=== PATIENT | female | born 1975 | race Caucasian/White ===

== ENCOUNTER 2025-07-25 07:34 | Outpatient (CLI) | payer OTHER, SELFPAY ==
--- OUTSIDE RECORDS SUMMARY | 2023-12-04 08:59 | XMS_ITS | Continuity of Care Document ---
Author Organization [facility] Address [address] [place] [address] Phone Care Team Providers Care Therapy Manager Name Role Phone Prosper Dsouza MD Unavailable Unavailable Advance Directives Directive Yes / No Effective Date File Name No Information Encounters Encounter Description Practice Location Reason(s) For Visit Diagnoses Date Provider [facility], [address] [place] [address], [facility], tel:[phone] [facility] Office No Information 2023 Meet Cheng. [address] [facility], [address], [place], [place], [id number], [place]. tel:[phone] Family History Family Member Type Diagnosis Age At Onset No Information Payers Payer name Insurance type Covered constitution party ID Authoriza tion(s) No Information Social History Type Description Quantity Date Captured Comments Sex Female Smoking Status No Information Chief Complaint And Reason For Visit No Information History Of Present Illness Encounter Date Complaint History Of Prese nt Illness No Information Instructions Date Instruction Additional Infor mation No Information Assessments Type Assessment Date No Information
--- OUTSIDE RECORDS SUMMARY | 2025-05-27 22:59 | XMS_ITS | Continuity of Care Document ---
Author Organization [facility] Address [address] [facility] [place] [address] Phone . Care Team Providers Care Assistant Professor Of Anthropology Name Role Phone Azra Du Primary Care Physician [phone] Encounter [place] [phone] Date(s): 05/27/25 - 05/27/[address] [address] [place] [phone] Discharge Disposition: Home Attending Physician: Azra Du Admitting Physician: Azra Du Encounter Type: Outpatient Allergies, Adverse Reactions, Alerts Substance Criticality Severity Reaction Reaction Severity Status penicillin Low criticality Mild Unknown Act anette Ultram Low criticality Mild nausea Acti ve Cymbalta Low criticality Mild nausea Acti ve Treatment Plan Future Appointments Medications cephalexin 500 mg oral capsule 500 mg = 1 cap(s), Oral, q12hr, # 20 cap(s), 0 Refill(s), Pharmacy: [facility], 1 cap(s) Oral q12hr, 162.56, cm, 02/22/25 8:35:00 EDT, Height, 105.6, kg, 02/22/25 8:41:00 EDT, Weight Dosing Start Date: 02/22/25 Status: Ordered Medication Dispense Status: Completed Quantity: 20.0 Unit: cap(s) Total Allowed Fills: 1 Fills Dispensed: 0 Indications: Dysuria; dicyclomine 20 mg oral tablet 20 mg = 1 tab(s), Oral, QID, PRN PRN Dyspepsia, # 40 tab(s), 0 Refill(s), Pharmacy: [facility], 1 tab(s) Oral QID,x14 day(s),PRN:Dyspepsia, 162.56, cm, 09/08/23 10:34:00 EST, Height, 9,680,kg, 09/08/23 10:38:00 EST, Weight Dosing Start Date: 09/16/23 Stop Date: 09/30/23 Status: Ordered Medication Dispense Status: Completed Quantity: 40.0 Unit: tab(s) Total Allowed Fills: 1 Fills Dispensed: 0 fluconazole 150 mg oral tablet 150 mg = 1 tab(s), Oral, Once, # 1 tab(s), 0 Refill(s), Pharmacy: [facility], 1 tab(s) Oral Once, 162.56, cm, 02/22/25 8:35:00 EDT, Height, 105.6, kg, 02/22/25 8:41:00 EDT, Weight Dosing Start Date: 02/22/25 Status: Ordered Medication Dispense Status: Completed Quantity: 1.0 Unit: tab(s) Total Allowed Fills: 1 Fills Dispensed: 0 Indications: Dysuria; hydrOXYzine hydrochloride 25 mg oral tablet 25 mg = 1 tab(s), Oral, BID, PRN PRN Anxiety, # 60 tab(s), 5 Refill(s), Pharmacy: [facility], 1 tab(s) Oral BID,x30 day(s),PRN:Anxiety, 162.56, cm, 05/17/24 10:02:00 EDT, Height, 97.34, kg,05/17/24 10:06:00 EDT, Weight Dosing Start Date: 07/19/24 Stop Date: 01/15/25 Status: Ordered Medication Dispense Status: Completed Quantity: 60.0 Unit: tab(s) Total Allowed Fills: 6 Fills Dispensed: 0 omeprazole 40 mg oral delayed release capsule 40 mg = 1 cap(s), Oral, Daily, # 90 cap(s), 2 Refill(s), Pharmacy: [facility], 1 cap(s) Oral Daily, 162.56, cm, 12/13/24 9:19:00 EDT, Height, 104.96, kg, 12/13/24 9:20:00 EDT, Weight Dosing Start Date: 12/13/24 Status: Ordered Medication Dispense Status: Completed Quantity: 90.0 Unit: cap(s) Total Allowed Fills: 3 Fills Dispensed: 0 Indications: Gastro-esophageal reflux disease without esophagitis; pantoprazole 40 mg oral delayed release tablet TAKE 1 TABLET BY MOUTH ONCE DAILY Start Date: 03/28/25 Status: Ordered Medication Dispense Status: Completed Total Allowed Fills: 1 Fills Dispensed: 0 semaglutide 0.25 mg/0.5 mL (0.25 mg dose) subcutaneous solution See Instructions, 0.25 mg Subcutaneous qWeek X 4 weeks then 0.5 mg weekly X 4 weeks in the abdomen,thigh, or upper arm, # 1 EA, 0 Refill(s), Pharmacy: [facility], please send syringes and bill patient directly, 0.25 mg Subcutaneous qWeek X 4 weeks then 0.5 mg weekly X 4 weeks; in the abdomen, thigh, or upper arm, 162.56, cm, 12/13/24 9:19:00 EDT, Height, 104.96, kg, 12/13/24 9:20:00 EDT, Weight Dosing Start Date: 12/13/24 Status: Ordered Medication Dispense Status: Completed Quantity: 1.0 Unit: EA Total Allowed Fills: 1 Fills Dispensed: 0 Indications: Obesity, unspecified; Problem List Condition Confirmation Course Effective Dates Status Health St [facility] Informant Anxiety Confirmed Active Parekh's esophagus Confirmed Active Degenerative cervical disc Confirmed Active Degenerative lumbar disc Confirmed Active GERD (gastroesophageal reflux disease) Confirmed Active Generalized anxiety disorder Confirmed Active Personal history of other colon polyps Confirmed Active Menopausal symptoms Confirmed Active Neuropathy Confirmed Active Osteoarthritis, multiple sites Confirmed Active Urge incontinence Confirmed Active Procedures Procedure Date Related Diagnosis Body Site Status Colonoscopy 1 07/29/24 Completed Polypectomy 2 07/29/24 Completed Arthroplasty of left knee 11/19/22 Completed History of knee surgery-Left Knee 11/19/22 Completed Date of last mammogram 3 08/30/22 Completed neck surgery 06/2022 Completed Biopsy 4 03/07/22 Completed Esophagogastroduodenoscopy 5 03/07/22 Completed Endoscopy 2017 Completed Hysterectomy-vaginal 2014 Co mpleted Carpal tunnel repair - right hand Completed Cholecystectomy Completed Colonoscopy Completed Epidural steroid injection Completed Knee arthroplasty - right Completed neck fusion C5-6 Complete d Tubal ligation Completed 1auto-populated from documented surgical case 2auto-populated from documented surgical case 3neg 4auto-populated from documented surgical case 5auto-populated from documented surgical case 6Endometriosis Social History Social History Type Response Tobacco Never tobacco user T obacco Use:. Sex Sex Representation Female (finding) Patient Care team information Care Team Personnel Name: Azra Du FAMILY SUPPORT SPECIALIST Position: [employer] Member Role: Primary Care Physician Address: [address] [place] [address] Telecom: Care Team Related Persons Name: ABHISHEK OVALLE Name: MIGUEL ÁNGEL GRIMES Name: SONY GRIMES Insurance Providers Guarantor name: LIZETH ESPINOZA Health Plan Information #: 1 Payer: [facility] Payer Identifier: [id number] Member Number: [id number] Group Number: [id number] Subscriber Identifier: [id number] Relationship to Subscriber: self Coverage Type: PRIVATE [employer] INSURANCE Coverage Verification Date: 25 Telecom: [phone] Address: [address] [place] [address]
--- OUTSIDE RECORDS SUMMARY | 2025-05-30 22:59 | XMS_ITS | Continuity of Care Document ---
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 Name Role Phone Azra Du Primary Care Physician [phone] Encounter 05/30/25 - 05/30/25 [facility] [address] [address]- [phone] - Encounter Diagnosis Personal history of other colon polyps(Discharge Diagnosis) - 05/30/25 Elevated cholesterol(Discharge Diagnosis) - 05/30/25 Annual physical exam(Discharge Diagnosis) - 05/30/25 Obesity (BMI 30-39.9)(Discharge Diagnosis) - 05/30/25 Medication management(Discharge Diagnosis) - 05/30/25 Chronic GERD(Discharge Diagnosis) - 05/30/25 Breast cancer screening(Discharge Diagnosis) - 05/30/25 Discharge Disposition: Home Attending Physician: Azra DuP Encounter Type: Clinic Outpatient Allergies, Adverse Reactions, Alerts Substance Criticality Severity Reaction Reaction Severity Status penicillin Low criticality Mild Unknown Act anette Cymbalta Low criticality Mild nausea Acti ve Ultram Low criticality Mild nausea Acti ve Treatment Plan Extracted from: Title:annual physical exam Author:Donald Du Date:05/30/25 Depression Screen PHQ 2 PHQ 9 MARY-7 Little Interest - Pleasure in Activities: Not at all Trouble Falling or Staying Asleep: Not at all GAD7 Nervousness: Several days Feeling Down, Depressed, Hopeless: Not at all Feeling Tired or Little Energy: Not at all GAD7 Unable to Control Worry: Several days Initial Depression Screen Score: 0 Score Poor Appetite or Overeating: Not at all GAD7 Worrying Too Much: Not at all Feeling Bad About Yourself: Not at all GAD7 Trouble Relaxing: Several days Trouble Concentrating: Not at all GAD7 Restlessness: Not at all Moving or Speaking Slowly: Not at all GAD7 Irritable: Several days Thoughts Better Off or Hurting Self: Not at all GAD7 Fear: Several days Detailed Depression Screen Score: 0 GAD7 Score: 5 Total Depression Screen Score: 0 Adult Depression Screen Interp: Negative Assessment/Plan 1. Annual physical exam Z00.00 normal physical exam today in office. Ordered: Lipid Panel Standard, Blood, Routine collect, 05/30/25, Annual physical exam Elevated cholesterol, Order for future visit, (Future) 2. Personal history of other colon polyps Z86.0109 patient will have repeat colonoscopy 07/2029 3. Elevated cholesterol E78.00 will repeat fasting lipid panel Ordered: Lipid Panel Standard, Blood, Routine collect, 05/30/25, Annual physical exam Elevated cholesterol, Order for future visit, (Future) 4. Obesity (BMI 30-39.9) E66.9 patient to continue trying to improve daily diet and increase with daily exercise/activity 5. Chronic GERD K21.9 stable. patient to continue current medication therapy. 6. Breast cancer screening Z12.39 mammogram ordered patient to schedule and complete. Ordered: [facility] Mammogram Screening Bilat w/ Chai., 05/30/25, Routine, Reason: breast cancer screening, Breast cancer screening, Transport Mode: Ambulatory, Rad Type, (Future) Medication management Z79.899 Future Appointments Future Scheduled Tests Radiology* [facility] Mammogram Screening Bilat w/ Chai. 07/11/25 Medications cephalexin 500 mg oral capsule 500 mg = 1 cap(s), Oral, q12hr, # 20 cap(s), 0 Refill(s), Pharmacy: [facility], 1 cap(s) Oral q12hr, 162.56, cm, 02/22/25 8:35:00 EDT, Height, 105.6, kg, 02/22/25 8:41:00 EDT, Weight Dosing Start Date: 02/22/25 Status: Ordered Medication Dispense Status: Completed Quantity: 20.0 Unit: cap(s) Total Allowed Fills: 1 Fills Dispensed: 0 Indications: Dysuria; dicyclomine 20 mg oral tablet 20 mg = 1 tab(s), Oral, QID, PRN PRN Dyspepsia, # 40 tab(s), 0 Refill(s), Pharmacy: [facility], 1 tab(s) Oral QID,x14 day(s),PRN:Dyspepsia, 162.56, cm, 09/08/23 10:34:00 EST, Height, 9,680,kg, 09/08/23 10:38:00 EST, Weight Dosing Start Date: 09/16/23 Stop Date: 09/30/23 Status: Ordered Medication Dispense Status: Completed Quantity: 40.0 Unit: tab(s) Total Allowed Fills: 1 Fills Dispensed: 0 hydrOXYzine hydrochloride 25 mg oral tablet 25 mg = 1 tab(s), Oral, BID, PRN PRN Anxiety, # 60 tab(s), 5 Refill(s), Pharmacy: [facility], 1 tab(s) Oral BID,x30 day(s),PRN:Anxiety, 162.56, cm, 05/17/24 10:02:00 EDT, Height, 97.34, kg,05/17/24 10:06:00 EDT, Weight Dosing Start Date: 07/19/24 Stop Date: 01/15/25 Status: Ordered Medication Dispense Status: Completed Quantity: 60.0 Unit: tab(s) Total Allowed Fills: 6 Fills Dispensed: 0 omeprazole 40 mg oral delayed release capsule 40 mg = 1 cap(s), Oral, Daily, # 90 cap(s), 2 Refill(s), Pharmacy: [facility], 1 cap(s) Oral Daily, 162.56, cm, 12/13/24 [...] Total Allowed Fills: 1 Fills Dispensed: 0 Problem List Condition Confirmation Course Effective Dates Status Health St atus Informant Parekh's esophagus Confirmed Active Degenerative cervical disc Confirmed Active Degenerative lumbar disc Confirmed Active Personal history of other colon polyps Confirmed Active Neuropathy Confirmed Active Osteoarthritis, multiple [...] case 5auto-populated from documented surgical case 6Endometriosis Vital Signs Most recent to oldest [Reference Range]: 1 Peripheral Pulse Rate [60-100 bpm] 53 bp m *LOW* (05/30/25 9:13 AM) Blood Pressure [90-120/60-80 mmHg] 124/8 2mmHg *HI* (05/30/25 9:13 AM) Mean Arterial Pressure, Cuff [70-110 mmH g] 96 mmHg (05/30/25 9:13 AM) BP Site Right arm (05/30/25 9:13 AM) Pulse Site Pulse Oximetry (05/30/25 9:13 AM) SpO2 [92-100 %] 97 % (05/30/25 9:13 AM) Height 162.56 cm (05/30/25 9:13 AM) Height/Length Measured (inches) 64 in (05/30/25 9:13 AM) Weight 105.69 kg (05/30/25 9:13 AM) Weight Measured (lbs) 233.006 lb (05/30/25 9:13 AM) Weight Dosing 105.690 kg (05/30/25 9:13 AM) BSA Measured 2.18 m2 (05/30/25 9:13 AM) Body Mass Index 40 kg/m2 (05/30/25 9:13 AM) Social History Social History Type Response Tobacco Never tobacco user T obacco Use:. Sex Sex Representation Female (finding) Hospital Discharge Instructions Patient Education 05/30/2025 09:52:29 Preventing Consequences of Unhealthy Eating Behaviors, Adult Preventing Consequences of Unhealthy Eating Behaviors, Adult Eating behaviors are influenced by your thoughts, feelings, and relationships with other people. Everyone has some unhealthy eating behaviors. These could be eating too much or too little, eating unhealthy foods, or eating at the wrong times or for the wrong reasons. If these behaviors are not managed, they can lead to health problems. If you also struggle with weight management, it may be even harder to change patterns of irregular and unhealthy eating (disordered eating). Being underweight or overweight and having unhealthy eating behaviors may lead to dangerous health problems. Unhealthy eating behaviors may also be signs thatyou have an eating disorder. This is a type of mental health issue that causes problems with healthy eating or with weight regulation. How can unhealthy eating behaviors affect me? Eating in unhealthy ways to try to lose weight can cause: ??? Tiredness (fatigue), low heart rate, and low blood pressure. ??? Imbalances in your body. These may be imbalances in: ??? Electrolytes. These are salts and minerals in your blood. ??? Chemicals. These are needed so your body can work properly. ??? Body fluids. Loss of fluids may lead to dehydration. ??? Organ damage or organ failure, especially affecting the kidneys. ??? Thin bones that break easily. ??? Loneliness or relationship problems with your friends and family. ??? Emotional problems, including depression and anxiety. Changing unhealthy eating behaviors through lifestyle changes will improve your overall health. If you maintain a healthy weight, you can also lower your risk of certain conditions, including: ??? Obesity. ??? Heart disease, high cholesterol, or high blood pressure. ??? Type 2 diabetes. ??? Breathing and sleeping disorders. ??? Stroke. ??? Osteoarthritis. This affects your joints. ??? Osteoporosis. This affects your bones. ??? Some cancers. What can increase my risk? Certain physical and mental conditions can increase your risk for unhealthy eating behaviors, such as: ??? Depression. ??? Being dissatisfied with your body. ??? Painful events (trauma) in childhood. ??? Being overweight or obese. What actions can I take to prevent unhealthy eating behaviors? You can start changing unhealthy eating behaviors by making different food choices. Choices that you make about what to eat and drink are very important, especially if you want to lose weight. Makingcertain lifestyle changes can also help you change unhealthy eating behaviors. Nutrition ??? Eat a variety of healthy foods, including fruits and vegetables, whole grains, lean proteins, and low-fat dairy products. ??? Drink water instead of sugary drinks such as juice, soda, or sports drinks. ??? Drink enough fluid to keep your urine pale yellow. ??? Plan healthy, balanced meals. Work with a dietitian to make a healthy meal plan that works for you. ??? Avoid the following: ??? Foods that are high in fat, salt (sodium), or sugar. These include candy, donuts, pizza, and fast foods. ??? Fried or heavily processed foods. Lifestyle ??? Avoid these unhealthy eating habits: ??? Eating when you are not hungry, or when you are bored, stressed, or doing another activity, such as watching TV. ??? Eating late at night. ??? Following a diet that restricts entire types of food. This may be a popular diet that promises extreme results in a short time. ??? Skipping meals to save calories or restricting your calories to far fewer than the number that you need to lose or maintain a healthy weight. ??? Not eating anything for long periods of time (fasting). ??? Eating an excessive amount of food and then making yourself vomit. This is known as bingeing and purging. ??? Keep a food diary to help you see patterns of unhealthy eating behaviors and what triggers them. ??? Plan your meals ahead of time and prepare them at home. ??? Eat your food slowly, and avoid distractions such as watching TV while you eat. ??? Get enough sleep each night. ??? Give yourself time to replace unhealthy eating behaviors with healthy ones. ??? Do not use any products that contain nicotine or tobacco. These products include cigarettes, chewing tobacco, and vaping devices, such as e-cigarettes. If you need help quitting, ask your health care provider. Alcohol use ??? Do not drink alcohol if: ??? Your health care provider tells you not to drink. ??? You are , may be , or are planning to become . ??? If you drink alcohol: ??? Limit how much you have to: ??? 0???1 drink a day for women. ??? 0???2 drinks a day for men. ??? Know how much alcohol is in your drink. In the [place] one drink equals one 12 oz bottle of beer (355 mL), one 5 oz glass of wine (148 mL), or one 1?? oz glass of hard liquor (44 mL). Activity ??? Avoid extreme amounts of exercise. ??? Work with your health care provider or a dietitian to design an exercise program that works foryou. ??? To maintain your weight, get at least 150 minutes of moderate-intensity exercise each week. Moderate-intensity exercise could be brisk walking or biking. ??? To lose a healthy amount of weight, get 60 minutes of moderate-intensity exercise each day. ??? Find ways to reduce stress, such as regular exercise or meditation. ??? Find a hobby or other activity that you enjoy. This helps to distract you from eating when you feel stressed or bored. Where to find support For more support, talk with: ??? Your health care provider or dietitian. Ask about support groups. ??? A mental health care provider. ??? Family and friends. Where to find more information Learn more about how to prevent complications from unhealthy eating behaviors from: ??? ChooseMyPlate.gov: www.choosemyplate.gov ??? Centers for Disease Control and Prevention: www.cdc.gov ??? National [place] of Mental Health: www.nimh.nih.gov ??? National Eating Disorders Association: www.nationaleatingdisorders.org Contact a health care provider if: ??? You often feel very tired. ??? You notice changes in your skin or your hair. ??? You faint because you have not eaten enough. ??? You struggle to change your unhealthy eating behaviors on your own. ??? Unhealthy eating behaviors are affecting your daily life or your relationships. ??? You have signs or symptoms of an eating disorder. ??? You have major weight changes in a short period of time. ??? You feel guilty or ashamed about eating. Summary ??? Unhealthy eating behaviors include eating too much or too little, eating unhealthy foods, and eating at the wrong times or for the wrong reasons. ??? You can improve your eating habits and help prevent health problems by choosing healthy foods, getting enough calories every day, and exercising regularly. ??? Contact your health care provider if you cannot make these changes by yourself or if you think that you may have an eating disorder. This information is not intended to replace advice given to you by your health care provider. Make sure you discuss any questions you have with your health care provider. Document Revised: 04/23/2022 Document Reviewed: 04/23/2022 [employer] Patient Education ?? 2024 [employer]. 05/30/2025 09:52:27 Healthy Eating, Adult Healthy Eating, Adult Healthy eating may help you get and keep a healthy body weight, reduce the risk of chronic disease,and live a long and productive life. It is important to follow a healthy eating pattern. Your nutritional and calorie needs should be met mainly by different nutrient-rich foods. What are tips for following this plan? Reading food labels ??? Read labels and choose the following: ??? Reduced or low sodium products. ??? Juices with 100% fruit juice. Foods with low saturated fats (<3 g per serving) and high polyunsaturated and monounsaturated fats. ??? Foods with whole grains, such as whole wheat, cracked wheat, brown rice, and wild rice. ??? Whole grains that are fortified with folic acid. This is recommended for females who are or who want to become . ??? Read labels and do not eat or drink the following: ??? Foods or drinks with added sugars. These include foods that contain brown sugar, corn sweetener, corn syrup, dextrose, fructose, glucose, high-fructose corn syrup, honey, invert sugar, lactose, malt syrup, maltose, molasses, raw sugar, sucrose, trehalose, or turbinado sugar. ??? Limit your intake of added sugars to less than 10% of your total daily calories. Do not eat more than the following amounts of added sugar per day: ??? 6 teaspoons (25 g) for females. ??? 9 teaspoons (38 g) for males. ??? Foods that contain processed or refined starches and grains. ??? Refined grain products, such as white flour, degermed cornmeal, white bread, and white rice. Shopping ??? Choose nutrient-rich snacks, such as vegetables, whole fruits, and nuts. Avoid high-calorie andhigh-sugar snacks, such as potato chips, fruit snacks, and candy. ??? Use oil-based dressings and spreads on foods instead of solid fats such as butter, margarine, sour cream, or cream cheese. ??? Limit pre-made sauces, mixes, and instant products such as flavored rice, instant noodles, and ready-made pasta. ??? Try more plant-protein sources, such as tofu, tempeh, black beans, edamame, lentils, nuts, and seeds. ??? Explore eating plans such as the Mediterranean diet or vegetarian diet. ??? Try heart-healthy dips made with beans and healthy fats like hummus and guacamole. Vegetables go great with these. Cooking ??? Use oil to saut?? or stir-nuñez foods instead of solid fats such as butter, margarine, or lard. ??? Try baking, boiling, grilling, or broiling instead of frying. ??? Remove the fatty part of meats before cooking. ??? Steam vegetables in water or broth. Meal planning ??? At meals, imagine dividing your plate into fourths: ??? One-half of your plate is fruits and vegetables. ??? One-fourth of your plate is whole grains. ??? One-fourth of your plate is protein, especially lean meats, poultry, eggs, tofu, beans, or nuts. ??? Include low-fat dairy as part of your daily diet. Lifestyle ??? Choose healthy options in all settings, including home, work, school, restaurants, or stores. ??? Prepare your food safely: ??? Wash your hands after handling raw meats. ??? Where you prepare food, keep surfaces clean by regularly washing with hot, soapy water. ??? Keep raw meats separate from ilkhx-vx-mpb foods, such as fruits and vegetables. ??? grain inspector, meat, poultry, and eggs to the recommended temperature. Get a food thermometer. ??? Store foods at safe temperatures. In general: ??? Keep cold foods at 40??F (4.4??C) or below. ??? Keep hot foods at 140??F (60??C) or above. ??? Keep your freezer at 0??F (-17.8??C) or below. ??? Foods are not safe to eat if they have been between the temperatures of 40???140??F (4.4???60??C) for more than 2 hours. What foods should I eat? Fruits Aim to eat 1?2?? cups of fresh, canned (in natural juice), or frozen fruits each day. One cup of fruit equals 1 small apple, 1 large banana, 8 large strawberries, 1 cup (237 g) canned fruit, ?? cup (82 g) dried fruit, or 1 cup (240 mL) 100% juice. Vegetables Aim to eat 2???4 cups of fresh and frozen vegetables each day, including different varieties and colors. One cup of vegetables equals 1 cup (91 g) broccoli or cauliflower florets, 2 medium carrots, 2cups (150 g) raw, leafy greens, 1 large tomato, 1 large mcleod pepper, 1 large sweet potato, or 1 medium white potato. Grains Aim to eat 5???10 ounce-equivalents of whole grains each day. Examples of 1 ounce-equivalent of grains include 1 slice of bread, 1 cup (40 g) igimm-xw-aoc cereal, 3 cups (24 g) popcorn, or ?? cup (93g) cooked rice. Meats and other proteins Try to eat 5???7 ounce-equivalents of protein each day. Examples of 1 ounce- equivalent of protein include 1 egg, ?? oz nuts (12 almonds, 24 pistachios, or 7 walnut halves), 1/4 cup (90 g) cooked beans, 6 tablespoons (90 g) hummus or 1 tablespoon (16 g) peanut butter. A cut of meat or fish that is the size of a deck of cards is about 3???4 ounce-equivalents (85 g). ??? Of the protein you eat each week, try to have at least 8 sounce (227 g) of seafood. This is about 2 servings per week. This includes salmon, trout, romero, sardines, and anchovies. Dairy Aim to eat 3 cup-equivalents of fat-free or low-fat dairy each day. Examples of 1 cup-equivalent ofdairy include 1 cup (240 mL) milk, 8 ounces (250 g) yogurt, 1?? ounces (44 g) natural cheese, or 1 cup (240 mL) fortified soy milk. Fats and oils ??? Aim for about 5 teaspoons (21 g) of fats and oils per day. Choose monounsaturated fats, such ascanola and olive oils, mayonnaise made with olive oil or avocado oil, avocados, peanut butter, and most nuts, or polyunsaturated fats, such as sunflower, corn, and soybean oils, walnuts, pine nuts, sesame seeds, sunflower seeds, and flaxseed. Beverages ??? Aim for 6 eight-ounce glasses of water per day. Limit coffee to 3???5 eight- ounce cups per day. ??? Limit caffeinated beverages that have added calories, such as soda and energy drinks. ??? If you drink alcohol: ??? Limit how much you have to: ??? 0???1 drink a day if you are female. ??? 0???2 drinks a day if you are male. ??? Know how much alcohol is in your drink. In the [place] one drink is one 12 oz bottle of beer (355mL), one 5 oz glass of wine (148 mL), or one 1?? oz glass of hard liquor (44 mL). Seasoning and other foods ??? Try not to add too much salt to your food. Try using herbs and spices instead of salt. ??? Try not to add sugar to food. This information is based on [place] nutrition guidelines. To learn more, visit chooseSonex[employer] Technologyplate.gov. Exact amounts may vary. You may need different amounts. This information is not intended to replace advice given to you by your health care provider. Make sure you discuss any questions you have with your health care provider. Document Revised: 06/09/2023 Document Reviewed: 06/09/2023 [employer] Patient Education ?? 2024 [employer] 05/30/2025 09:52:18 Health Maintenance, Female Health Maintenance, Female Adopting a healthy lifestyle and getting preventive care are important in promoting health and wellness. Ask your health care provider about: ??? The right schedule for you to have regular tests and exams. ??? Things you can do on your own to prevent diseases and keep yourself healthy. What should I know about diet, weight, and exercise? Eat a healthy diet ??? Eat a diet that includes plenty of vegetables, fruits, low-fat dairy products, and lean protein. ??? Do not eat a lot of foods that are high in solid fats, added sugars, or sodium. Maintain a healthy weight Body mass index (BMI) is used to identify weight problems. It estimates body fat based on height and weight. Your health care provider can help determine your BMI and help you achieve or maintain a healthy weight. Get regular exercise Get regular exercise. This is one of the most important things you can do for your health. Most adults should: ??? Exercise for at least 150 minutes each week. The exercise should increase your heart rate and make you sweat (moderate-intensity exercise). ??? Do strengthening exercises at least twice a week. This is in addition to the moderate-intensityexercise. ??? Spend less time sitting. Even light physical activity can be beneficial. Watch cholesterol and blood lipids Have your blood tested for lipids and cholesterol at 20 years of age, then have this test every 5 years. Have your cholesterol levels checked more often if: ??? Your lipid or cholesterol levels are high. ??? You are older than 40 years of age. ??? You are at high risk for heart disease. What should I know about cancer screening? Depending on your health history and family history, you may need to have cancer screening at various ages. This may include screening for: ??? Breast cancer. ??? Cervical cancer. ??? Colorectal cancer. ??? Skin cancer. ??? Lung cancer. What should I know about heart disease, diabetes, and high blood pressure? Blood pressure and heart disease ??? High blood pressure causes heart disease and increases the risk of stroke. This is more likely to develop in people who have high blood pressure readings or are overweight. ??? Have your blood pressure checked: ??? Every 3???5 years if you are 18???39 years of age. ??? Every year if you are 40 years old or older. Diabetes Have regular diabetes screenings. This checks your fasting blood sugar level. Have the screening done: ??? Once every three years after age 40 if you are at a normal weight and have a low risk for diabetes. ??? More often and at a younger age if you are overweight or have a high risk for diabetes. What should I know about preventing infection? Hepatitis B If you have a higher risk for hepatitis B, you should be screened for this virus. Talk with your health care provider to find out if you are at risk for hepatitis B infection. Hepatitis C Testing is recommended for: ??? Everyone born from 1945 through 1965. ??? Anyone with known risk factors for hepatitis C. Sexually transmitted infections (STIs) ??? Get screened for STIs, including gonorrhea and chlamydia, if: ??? You are sexually active and are younger than 24 years of age. ??? You are older than 24 years of age and your health care provider tells you that you are at riskfor this type of infection. ??? Your sexual activity has changed since you were last screened, and you are at increased risk for chlamydia or gonorrhea. Ask your health care provider if you are at risk. ??? Ask your health care provider about whether you are at high risk for HIV. Your health care provider may recommend a prescription medicine to help prevent HIV infection. If you choose to take medicine to prevent HIV, you should first get tested for HIV. You should then be tested every 3 months for as long as you are taking the medicine. ??? If you are about to stop having your period (premenopausal) and you may become , seek counseling before you get . ??? Take 400 to 800 micrograms (mcg) of folic acid every day if you become . ??? Ask for control (contraception) if you want to prevent . Osteoporosis and menopause Osteoporosis is a disease in which the bones lose minerals and strength with aging. This can resultin bone fractures. If you are 65 years old or older, or if you are at risk for osteoporosis and fractures, ask your health care provider if you should: ??? Be screened for bone loss. ??? Take a calcium or vitamin D supplement to lower your risk of fractures. ??? Be given hormone replacement therapy (HRT) to treat symptoms of menopause. Follow these instructions at home: Alcohol use ??? Do not drink alcohol if: ??? Your health care provider tells you not to drink. ??? You are , may be , or are planning to become . ??? If you drink alcohol: ??? Limit how much you have to: ??? 0???1 drink a day. ??? Know how much alcohol is in your drink. In the [place] one drink equals one 12 oz bottle of beer (355 mL), one 5 oz glass of wine (148 mL), or one 1?? oz glass of hard liquor (44 mL). Lifestyle ??? Do not use any products that contain nicotine or tobacco. These products include cigarettes, chewing tobacco, and vaping devices, such as e-cigarettes. If you need help quitting, ask your health care provider. ??? Do not use street drugs. ??? Do not share needles. ??? Ask your health care provider for help if you need support or information about quitting drugs. General instructions ??? Schedule regular health, dental, and eye exams. ??? Stay current with your vaccines. ??? Tell your health care provider if: ??? You often feel depressed. ??? You have ever been abused or do not feel safe at home. Summary ??? Adopting a healthy lifestyle and getting preventive care are important in promoting health and wellness. ??? Follow your health care provider's instructions about healthy diet, exercising, and getting tested or screened for diseases. ??? Follow your health care provider's instructions on monitoring your cholesterol and blood pressure. This information is not intended to replace advice given to you by your health care provider. Make sure you discuss any questions you have with your health care provider. Document Revised: 01/28/2022 Document Reviewed: 01/28/2022 [employer] Patient Education ?? 2024 [employer]. Follow Up Care 03/28/2025 09:30:38 With:Joe Castellon MD Address: When:6 Months Primary care Note * Azra Du: MODIFY, PERFORM Event Display: Office/Clinic Note Authored Date: [id number] LIZETH ESPINOZA :1975 Age:50 years Sex:Female Registration Date:05/30/2025 Primary Care Physician: Azra Du Chief Complaint Physical History of Present Illness patient in office for annual physical exam: ?? GERD: taking omeprazole 40 mg daily with well controlled reflux symptoms. denies adverse effects with medication. ?? screening: breast - mammogram ordered cervical - complete hysterectomy 2014 colon - 07/2024 colonoscopy with polyps removed. recommended f/u 5 years Review of Systems Constitutional:?No??fevers,??No??chills,??No??sweats?? Eye:?No??recent visual problems?? ENT:?No??ear pain,??No??nasal congestion,??No??sore throat?? Respiratory:?No??shortness of breath,??No?cough?? Cardiovascular:??No?Chest??pain?No??palpitations?No??syncope?? Gastrointestinal:?No??nausea,??No??vomiting,??No??diarrhea?? Genitourinary:?No??hematuria Andres/Lymph:??No??bruising tendency,??No??swollen lymph glands?? Endocrine:?No??excessive thirst,??No??excessive hunger?? Musculoskeletal:No??back pain,??No??neck pain,??No??joint pain,??No??muscle pain,??No??decreased range of motion?? Integumentary:?No??rash,??No??pruritus,??No??abrasions?? Neurologic: Alert & oriented X 4 Psychiatric:?No??anxiety,??No??depression ?? Physical Exam Vitals & Measurements HR:??53??(Peripheral)?? BP:??124/82?? SpO2:??97%?? HT:??162.56??cm?? WT:??105.69??kg?? BMI:??40?? BSA:??2.18?? General: Alert and oriented, well nourished,??No??acute distress?? Eye:??PERRL, EOMI,?Normal?? conjunctiva?? HENT: Normocephalic, clear tympanic membranes,??Normal??hearing, moist oral mucosa,?No??scleral icterus,?No?? sinus tenderness?? Neck: Supple, non-tender,??Nocarotid bruits,?NoJVD, ??No??lymphadenopathy?? Lungs:??Clear to auscultation?? Respiration:??Non-Labored Heart: ??Normal?? rate, ??Regular?? rhythm,?No?? murmur,??No?? gallop,??No??edema?? Abdomen: Soft, non-tender, non-distended, ??Normal?? bowel sounds??No?? masses Musculoskeletal: ??Normal??range of motion and strength, ??No??tenderness, ??No?? swelling?? Skin: Skin is warm, dry and pink, ??No?? rashes, ??No?? lesions?? Neurologic: Awake, alert and oriented X4, CN I-XII intact?? Psychiatric: Cooperative, appropriate mood and affect Depression Screen?? PHQ 2?? PHQ 9?? MARY-7?? Little Interest - Pleasure in Activities: Not at all Trouble Falling or Staying Asleep: Not at all GAD7 Nervousness: Several days Feeling Down, Depressed, Hopeless: Not at all Feeling Tired or Little Energy: Not at all GAD7 Unable to Control Worry: Several days Initial Depression Screen Score: 0 Score Poor Appetite or Overeating: Not at all GAD7 Worrying Too Much: Not at all ?? Feeling Bad About Yourself: Not at all GAD7 Trouble Relaxing: Several days ?? Trouble Concentrating: Not at all GAD7 Restlessness: Not at all ?? Moving or Speaking Slowly: Not at all GAD7 Irritable: Several days ?? Thoughts Better Off or Hurting Self: Not at all GAD7 Fear: Several days ?? Detailed Depression Screen Score: 0 GAD7 Score: 5 ?? Total Depression Screen Score: 0 ? Adult Depression Screen Interp: Negative ?? Assessment/Plan 1.??Annual physical exam??Z00.00 normal physical exam today in office. Ordered: Lipid Panel Standard, Blood, Routine collect, 05/30/25, Annual physical exam Elevated cholesterol, Order for future visit, (Future) ?? 2.??Personal history of other colon polyps??Z86.0109 patient will have repeat colonoscopy 07/2029 ?? 3.??Elevated cholesterol??E78.00 will repeat fasting lipid panel Ordered: Lipid Panel Standard, Blood, Routine collect, 05/30/25, Annual physical exam Elevated cholesterol, Order for future visit, (Future) ?? 4.??Obesity (BMI 30-39.9)??E66.9 patient to continue trying to improve daily diet and increase with daily exercise/activity ?? 5.??Chronic GERD??K21.9 stable.?? patient to continue current medication therapy. ?? 6.??Breast cancer screening??Z12.39 mammogram ordered patient to schedule and complete. Ordered: MA Mammogram Screening Bilat w/ Chai., 05/30/25, Routine, Reason: breast cancer screening, Breast cancer screening, Transport Mode: Ambulatory, Rad Type, (Future) ?? Medication management??Z79.899 ?? Future Orders Lipid Panel Standard, Blood, Routine collect, 05/30/25, Annual physical exam Elevated cholesterol, Order for future visit MA Mammogram Screening Bilat w/ Chai., 05/30/25, Routine, Reason: breast cancer screening, Breast cancer screening, Transport Mode: Ambulatory, Rad Type Follow Up Instructions With When Contact Information Joe Castellon MD Within 6 Months Additional Instructions: Reviewed most recent and past labs and CHRIS. Counseled and educated the patient on: above Discussed expectations, prognosis, and treatment plan. Social and medical histories reviewed with patient. Medications reconciled. Educational material to be provided with depart paperwork upon checkout at front desk admin. Patient to check the portal to review today's note and recommendations. ?? Patient verbalized agreement and understanding of plan. ?? All questions reviewed and addressed to the patient's satisfaction.?? Will call if any other concerns. Patient Education Preventing Consequences of Unhealthy Eating Behaviors, Adult Healthy Eating, Adult Health Maintenance, Female Problem List/Past Medical History Ongoing Parekh's esophagus Degenerative cervical disc Degenerative lumbar disc Neuropathy Osteoarthritis, multiple sites Personal history of other colon polyps Urge incontinence Historical Anxiety Elevated blood pressure reading Generalized anxiety disorder GERD (gastroesophageal reflux disease) Hypercholesterolemia Hypertension Menopausal symptoms Pelvic pain Procedure/Surgical History ???Colonoscopy (07/29/2024)???Polypectomy (07/29/2024)???Arthroplasty of left knee (11/19/2022)???History of knee surgery-Left Knee (11/19/2022)???Date of last mammogram (08/30/2022)???neck surgery (06/2022)???Biopsy (03/07/2022)???Esophagogastroduodenoscopy (03/07/2022)???Endoscopy (2018)???Hysterectomy-vaginal (2014)???Carpal tunnel repair - right hand???Cholecystectomy???Colonoscopy???Epiduralsteroid injection???Knee arthroplasty - right???Tubal ligation???neck fusion C5-6 Medications cephalexin 500 mg oral capsule, 500 mg= 1 cap(s), Oral, q12hr dicyclomine 20 mg oral tablet, 20 mg= 1 tab(s), Oral, QID, PRN hydrOXYzine hydrochloride 25 mg oral tablet, 25 mg= 1 tab(s), Oral, BID, PRN, 5 refills omeprazole 40 mg oral delayed release capsule, 40 mg= 1 cap(s), Oral, Daily, 2 refills pantoprazole 40 mg oral delayed release tablet, TAKE 1 TABLET BY MOUTH ONCE DAILY Allergies Cymbalta??(nausea) Ultram??(nausea) penicillin??(Unknown) Social History Alcohol Never Electronic Cigarette/Vaping Electronic Cigarette Use: Never. 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 Home/Environment Feels unsafe at home: No. Nutrition/Health Regular Substance Use Never Tobacco Never tobacco user Tobacco Use:. Family History Breast cancer: Mother. Esophageal cancer: Other Relationship. Heart disease, unspecified: Father. Lung cancer: Mother. [Electronically Signed on: 05/30/2025 09:55 EDT] Azra Du [Verified on: 05/30/2025 09:55 EDT] Azra Du Outpatient Summary note * Veronika Cifuentes: PERFORM Event Display: Ambulatory Patient Summary Authored Date: [id number] LIZETH ESPINOZA :1975 Age:50 years Sex:Female Registration Date:05/30/2025 Primary Care Physician: Azra Du Ambulatory Visit Instructions We would like to thank you for allowing us to assist you with your healthcare needs. The following includes patient education materials and information regarding your injury/illness. Your Next Steps Scheduled Future Appointments Friday2025 4:00 PM EST ?? With: Joe Castellon MD Where: [facility] Status: Confirmed Friday2025 4:00 PM EDT ?? With: Joe Castellon MD Where: [facility] Status: Confirmed You Need to Complete the Following Lipid Panel Standard, Blood, Routine collect, 05/30/25, Annual physical exam Elevated cholesterol, Order for future visit MA Mammogram Screening Bilat w/ Chai., 05/30/25, Routine, Reason: breast cancer screening, Breast cancer screening, Transport Mode: Ambulatory, Rad Type Medications What How Much When Why Instructions Unchanged cephalexin (cephalexin 500 mg oral capsule) 1 cap Oral Every 12 hours Dysuria Unchanged dicyclomine (dicyclomine 20 mg oral tablet) 1 tab(s) Oral 4 times per day as needed for Dyspepsia Duration: 14 Days Unchanged hydrOXYzine (hydrOXYzine hydrochloride 25 mg oral tablet) 1 tab(s) Oral 2 times per day as needed for Anxiety Duration: 30 Days Unchanged omeprazole (omeprazole 40 mg oral delayed release capsule) 1 cap Oral Every day GE reflux Unchanged pantoprazole (pantoprazole 40 mg oral delayed release tablet) TAKE 1 TABLET BY MOUTH ONCE DAILY ? What How Much When Why Comments Stop Taking fluconazole (fluconazole 150 mg oral tablet) 1 tab(s) Oral Once Dysuria Stop Taking semaglutide (semaglutide 0.25 mg/ 0.5 mL (0.25 mg dose) subcutaneous solution) See instructions Obesity (BMI 30-39.9) 0.25 mg Subcutaneous qWeek X 4 weeks then 0.5 mg weekly X 4 weeks in the abdomen, thigh, or upper arm ?? Your Summary Your Diagnosis Annual physical exam Personal history of other colon polyps Elevated cholesterol Obesity (BMI 30-39.9) Chronic GERD Breast cancer screening Medication management Problems Ongoing - Any problem that you are currently receiving treatment for. Parekh's esophagus Degenerative cervical disc Degenerative lumbar disc Neuropathy Osteoarthritis, multiple sites Personal history of other colon polyps Urge incontinence Historical - Any problem that you are no longer receiving treatment for. Anxiety Elevated blood pressure reading Generalized anxiety disorder GERD (gastroesophageal reflux disease) Hypercholesterolemia Hypertension Menopausal symptoms Pelvic pain Your Care Team Attending Physician - Azra Du Primary Care Physician - Azra Du Discharge Vitals Heart Rate??(Peripheral) 53 Blood Pressure?? 124/82?? SpO2?? 97% Height?? 64.00 in (162.56 cm) Weight?? 233.05 lb (105.69 kg) BMI?? 40 Allergies Cymbalta??(nausea) Ultram??(nausea) penicillin??(Unknown) Electronically Signed on: 05/30/2025 09:32 EDT Signed by:ALEXIA Patient Care team information Care Team Personnel Name: Azra Du Position: [employer] Member Role: Primary Care Physician Address: [address] [place] [address] Telecom: Care Team Related Persons Name: ABHISHEK OVALLE Name: MIGUEL ÁNGEL GRIMES Name: SONY GRIMES Insurance Providers Guarantor name: LIZETH LUCIOIlene ESPINOZA [facility] Plan Information #: 1 [address]ayer: [facility] Payer Identifier: [id number] Member Number: [id number] Group Number: [id number] Subscriber Identifier: [id number] Relationship to Subscriber: self Coverage Type: PRIVATE HEALTH INSURANCE Coverage Verification Date: 05/26/25 Telecom: [phone] Address: [address] [place] [address]
--- OUTSIDE RECORDS SUMMARY | 2025-05-30 22:59 | XMS_ITS | Continuity of Care Document ---
Author Organization [facility] [place] [address] [place], [place] [id number]- Care Team Providers Care Double End Production Grinder Name Role Phone Azra Du Primary Care Physician Encounter 05/30/25 - 05/30/25 [facility] [address] [place] [address]- Discharge Disposition: Home Encounter Type: Between Visit Allergies, Adverse Reactions, Alerts Substance Criticality Severity Reaction Reaction Severity Status penicillin Low criticality Mild Unknown Act anette Cymbalta Low criticality Mild nausea Acti ve Ultram Low criticality Mild nausea Acti ve Treatment Plan Future Appointments Future Scheduled Tests Radiology* MA Mammogram Screening Bilat w/ Chai. 07/11/25 Medications cephalexin 500 mg oral capsule 500 mg = 1 cap(s), Oral, q12hr, # 20 cap(s), 0 Refill(s), Pharmacy: [facility], 1 cap(s) Oral q12hr, 162.56, cm, 02/22/25 8:35:00 EDT, Height, 105.6, kg, 02/22/25 8:41:00 EDT, Weight Dosing Start Date: 02/22/25 Status: Ordered Medication Dispense Status: Completed Quantity: 20.0 Unit: cap(s) Total Allowed Fills: 1 Fills Dispensed: 0 Indications: Dysuria; dicyclomine 20 mg oral tablet 20 mg = 1 tab(s), Oral, QID, PRN PRN Dyspepsia, # 40 tab(s), 0 Refill(s), Pharmacy: [facility], 1 tab(s) Oral QID,x14 [...] Anxiety, # 60 tab(s), 5 Refill(s), Pharmacy: [facility], 1 tab(s) Oral BID,x30 day(s),PRN:Anxiety, 162.56, cm, 05/17/24 10:02:00 EDT, Height, 97.34, kg,05/17/24 10:06:00 EDT, Weight Dosing Start Date: 07/19/24 Stop Date: 01/15/25 Status: Ordered Medication Dispense Status: Completed Quantity: 60.0 Unit: tab(s) Total Allowed Fills: 6 Fills Dispensed: 0 omeprazole 40 mg oral delayed release capsule 40 mg = 1 cap(s), Oral, Daily, # 90 cap(s), 2 Refill(s), Pharmacy: [facility], 1 cap(s) Oral Daily, 162.56, [...] LP Member Role: Primary Care Physician Address: [address] [place] [address] Telecom: Care Team Related Persons Name: ABHISHEK OVALLE Name: MIGUEL ÁNGEL GRIMES Name: SONY GRIMES Insurance Providers Guarantor name: MANUELITOCLYDE LUCION [facility] Plan Information #: 1 Payer: [facility] Payer Identifier: [id number] Member Number: [id number] Group Number: [id number] Subscriber Identifier: NA Relationship to Subscriber: self Coverage Type: PRIVATE HEALTH INSURANCE Coverage Verification Date: NA Telecom: [phone] Address: [address] [place] [address]
--- OUTSIDE RECORDS SUMMARY | 2025-05-30 22:59 | XMS_ITS | Continuity of Care Document ---
Author Organization [facility] Address [address] [place] [address] Phone . Care Team Providers Care Imaging System Administrator Name Role Phone Azra Du Primary Care Physician [phone] Encounter [place] [phone] Date(s): 05/30/25 - 05/30/[address] [address] [place] [phone] Discharge Disposition: Home Attending Physician: Azra Du [...] q12hr, # 20 cap(s), 0 Refill(s), Pharmacy: [facility], 1 cap(s) Oral q12hr, 162.56, cm, 02/22/25 8:35:00 EDT, Height, 105.6, kg, 02/22/25 8:41:00 EDT, Weight Dosing Start Date: 02/22/25 Status: Ordered Medication Dispense Status: Completed Quantity: 20.0 Unit: cap(s) Total Allowed Fills: 1 Fills Dispensed: 0 Indications: Dysuria; dicyclomine 20 mg oral tablet 20 mg = 1 tab(s), Oral, QID, PRN PRN Dyspepsia, # 40 tab(s), 0 Refill(s), Pharmacy: [facility], 1 tab(s) Oral QID,x14 [...] Anxiety, # 60 tab(s), 5 Refill(s), Pharmacy: [facility], 1 tab(s) Oral BID,x30 day(s),PRN:Anxiety, 162.56, cm, 05/17/24 10:02:00 EDT, Height, 97.34, kg,05/17/24 10:06:00 EDT, Weight Dosing Start Date: 07/19/24 Stop Date: 01/15/25 Status: Ordered Medication Dispense Status: Completed Quantity: 60.0 Unit: tab(s) Total Allowed Fills: 6 Fills Dispensed: 0 omeprazole 40 mg oral delayed release capsule 40 mg = 1 cap(s), Oral, Daily, # 90 cap(s), 2 Refill(s), Pharmacy: [facility], 1 cap(s) Oral Daily, 162.56, cm, [...] case 5auto-populated from documented surgical case 6Endometriosis Results Laboratory List Name Date Lipid Panel Standard 05/30/25 Most recent to oldest [Reference Range]: 1 Trig [0-150 mg/dL] 196 mg/dL *HI* (05/30/25 10:06 AM) Cholesterol Total [120-200 mg/dL] 261 mg /dL *HI* (05/30/25 10:06 AM) HDL Cholesterol [40-85 mg/dL] 60 mg/dL 1 (05/30/25 10:06 AM) Chol/HDL Ratio 4 *NA* (05/30/25 10:06 AM) LDL Calculated [0-130 mg/dL] 162 mg/dL 2 *HI* (05/30/25 10:06 AM) 1Interpretive Data: RRISK RISK RATIO INTERPRETATION: MALE FEMALE LOWEST <3.9 <3.0 LOW 3.9-4.7 3.0-3.6 MODERATE 4.8-5.9 3.7-4.6 HIGH 6.0-6.9 4.7-5.6 HIGHEST >6.9 >5.6 2Interpretive Data: RLDL LDL CALCULATION MAY BE INACCURATE WHEN TRIGLYCERIDES ARE >400 MG/DL. IF INACCURATE CALCULATED LDL RESULTS ARE SUSPECTED, PLEASE REQUEST DIRECT LDL MEASUREMENT. Social History Social History Type Response Tobacco Never tobacco user T obacco Use:. Sex Sex Representation Female (finding) Patient Care team information Care Team Personnel Name: Azra Du Position: [employer] Member Role: Primary Care Physician Address: [address] [place] [address] Telecom: Care Team Related Persons Name: ABHISHEK OVALLE Name: MIGUEL ÁNGEL GRIMES Name: SONY GRIMES Insurance Providers Guarantor name: LIZETH HILARIO J[facility] Plan Information #: 1 Payer: [facility] Payer Identifier: [id number] Member Number: [id number] Group Number: [id number] Subscriber Identifier: [id number] Relationship to Subscriber: self Coverage Type: PRIVATE HEALTH INSURANCE Coverage Verification Date: 25 Telecom: [phone] Address: [address] [place] [address]
--- OUTSIDE RECORDS SUMMARY | 2025-05-31 22:59 | XMS_ITS | Continuity of Care Document ---
Author Organization [facility] Address [address], [address]- Care Team Providers Care Labor Relations Officer Name Role Phone Azra Du Primary Care Physician Encounter 05/31/25 - 05/31/25 [facility] [address] [address]- (0 ) - Discharge Disposition: Home Encounter Type: Between Visit Allergies, Adverse Reactions, Alerts Substance Criticality Severity Reaction Reaction Severity Status penicillin Low criticality Mild Unknown Act anette Ultram Low criticality Mild nausea Acti ve Cymbalta Low criticality Mild nausea Acti ve Treatment Plan Future Appointments Future Scheduled Tests Radiology* MA Mammogram Screening Bilat w/ Chai. 06/03/25 Medications cephalexin 500 mg oral capsule 500 mg = 1 cap(s), Oral, q12hr, # 20 cap(s), 0 Refill(s), Pharmacy: [facility], 1 cap(s) Oral [...] Dyspepsia, # 40 tab(s), 0 Refill(s), Pharmacy: [facility], 1 tab(s) Oral [...] Anxiety, # 60 tab(s), 5 Refill(s), Pharmacy: [facility], 1 tab(s) Oral BID,x30 day(s),PRN:Anxiety, 162.56, cm, 05/17/24 10:02:00 EDT, Height, 97.34, kg,05/17/24 10:06:00 EDT, Weight Dosing Start Date: 07/19/24 Stop Date: 01/15/25 Status: Ordered Medication Dispense Status: Completed Quantity: 60.0 Unit: tab(s) Total Allowed Fills: 6 Fills Dispensed: 0 omeprazole 40 mg oral delayed release capsule 40 mg = 1 cap(s), Oral, Daily, # 90 cap(s), 2 Refill(s), Pharmacy: [facility], 1 cap(s) Oral [...] LP Member Role: Primary Care Physician Address: [address] [place] [address] Telecom: Care Team Related Persons Name: ABHISHEK OVALLE Name: MIGUEL ÁNGEL GRIMES Name: SONY GRIMES Insurance Providers Guarantor name: CRISTIANOCLYDE YANELIS [employer] Health Plan Information #: 1 Payer: [facility] Payer Identifier: [id number] Member Number: [id number] Group Number: [id number] Subscriber Identifier: NA Relationship to Subscriber: self Coverage Type: PRIVATE HEALTH INSURANCE Coverage Verification Date: LUCERO Telecom: [phone] Address: [address] [place] [address]
--- OUTSIDE RECORDS SUMMARY | 2025-06-03 22:59 | XMS_ITS | Continuity of Care Document ---
Author Organization [facility] Address [address] [facility] [place] [address] Phone . Care Team Providers Care Senior Operations Analyst Name Role Phone Azra Du Primary Care Physician Encounter [place] [phone] Date(s): 06/03/25 - 06/03/[address] [address] [place] [phone] Discharge Disposition: Home Attending Physician: Azra Du [...] q12hr, # 20 cap(s), 0 Refill(s), Pharmacy: [facility], 1 cap(s) Oral [...] Dyspepsia, # 40 tab(s), 0 Refill(s), Pharmacy: [facility], 1 tab(s) Oral [...] Anxiety, # 60 tab(s), 5 Refill(s), Pharmacy: [facility], 1 tab(s) Oral BID,x30 day(s),PRN:Anxiety, 162.56, cm, 05/17/24 10:02:00 EDT, Height, 97.34, kg,05/17/24 10:06:00 EDT, Weight Dosing Start Date: 07/19/24 Stop Date: 01/15/25 Status: Ordered Medication Dispense Status: Completed Quantity: 60.0 Unit: tab(s) Total Allowed Fills: 6 Fills Dispensed: 0 omeprazole 40 mg oral delayed release capsule 40 mg = 1 cap(s), Oral, Daily, # 90 cap(s), 2 Refill(s), Pharmacy: [facility], 1 cap(s) Oral Daily, [...] 5auto-populated from documented surgical case 6Endometriosis Results Radiology Reports * Exam Date Time Procedure Performing Provider Status 06/03/25 2:13 PM MA Mammogram Screeni ng Bilat w/ Chai. Auth (Verified) Notes: ([place] Mammogram Screening Bilat w/ Chai.) Reason For Exam: breast cancer screening;SCREENING [place] Mammogram Screening Bilat w/ Chai. LIZETH ESPINOZA 1975 EXAM: MAMMO SCREENING BILATERAL WITH CAD AND CHAI INDICATION: SCREENING ; breast cancer screening. Tech Comments: None COMPARISON: 03/24/2024 dating back to 02/15/2011 TECHNIQUE: Bilateral digital mammogram was performed with COMPUTER-AIDED DETECTION and Tomosynthesis. These low-dose images were reconstructed into 1 mm thick slices and reviewed on the soft copy workstation. ACR BREAST DENSITY: There are scattered areas of fibroglandular density. FINDINGS: There are no suspicious masses, suspicious calcifications, or architectural distortion. IMPRESSION: No mammographic evidence of malignancy. BI-RADS CATEGORY: 1 - Negative (BIRADS Category 1) RECOMMENDATION: Monthly breast self examination. Annual physical examination. Screening mammogram in one year. (Code:SM-B-01Y) If your patient has an ACR breast density of heterogeneously dense or extremely dense listed above, and is 40 years of age or older, they may benefit from supplemental screening with abbreviated breast MRI. Per ACR and NCCN guidelines, recommend annual full protocol breast MRI and annual screening mammography, if your patient has: 1. 20% or greater lifetime risk for breast cancer per the Tyrer-Cuzick score listed above (if available) 2. A history of breast cancer before age 50 3. A history of breast cancer at any age in addition to breast density of heterogeneously dense or extremely dense Patients are encouraged to discuss their individual risk of breast cancer and screening options with their referring healthcare provider. If your patient meets NCCN guidelines for breast/ovarian cancer genetic testing (listed above if available), they may benefit from a referral to genetic counseling. The patient will be notified of these results in writing. The patient will also receive a reminder prior to their next mammogram. The breast imaging was performed at the site below: [place] [address] Electronically Signed By: Carloz Remy M.D. On: 06/03/2025 2:45:53 PM Final Dictated: 06/03/2025 2:45 pm Carloz Remy MD Signed (Electronic Signature): 06/03/2025 2:45 pm Signed by: Carloz Remy MD Technologist: ANDERSON WATTS Assessment: 1-Negative Recommendation: Normal interval follow-up Social History Social History Type Response Tobacco Never tobacco user T obacco Use:. Sex Sex Representation Female (finding) Patient Care team information Care Team Personnel Name: Azra Du Position: TONY Independent LP Member Role: Primary Care Physician Address: [address] [place] [address] Telecom: Care Team Related Persons Name: ABHISHEK OVALLE Name: MIGUEL ÁNGEL GRIMES Name: SONY GRIMES Insurance Providers Guarantor name: LIZETH LUCION [facility] [employer] Plan Information #: 1 Payer: [facility] Payer Identifier: [id number] Member Number: [id number] Group Number: [id number] Subscriber Identifier: [id number] Relationship to Subscriber: self Coverage Type: PRIVATE HEALTH INSURANCE Coverage Verification Date: 25 Telecom: [phone] Address: [facility] [id number] [place] [id number]
--- OUTSIDE RECORDS SUMMARY | 2025-06-03 22:59 | XMS_ITS | Continuity of Care Document ---
Author Organization [facility] Address [phone]- Care Team Providers Care Financial Investment Manager Name Role Phone Azra Du Primary Care Physician Encounter 06/03/25 - 06/03/25 [facility] [address] [facility] [phone] [phone] (0 ) - Discharge Disposition: Home Encounter [...] q12hr, # 20 cap(s), 0 Refill(s), Pharmacy: [facility], 1 cap(s) Oral [...] Dyspepsia, # 40 tab(s), 0 Refill(s), Pharmacy: [facility], 1 tab(s) Oral [...] Anxiety, # 60 tab(s), 5 Refill(s), Pharmacy: [facility], 1 tab(s) Oral [...] Daily, # 90 cap(s), 2 Refill(s), Pharmacy: [facility], 1 cap(s) Oral [...] LP Member Role: Primary Care Physician Address: [address] [place] [address] Telecom: Care Team Related Persons Name: ABHISHEK OVALLE Name: MIGUEL ÁNGEL GRIMES Name: SONY GRIMES Insurance Providers Guarantor name: CRISTIANOCLYDE LUCION [employer] Plan Information #: 1 Payer: [facility] Payer Identifier: [id number] Member Number: [id number] Group Number: [id number] Subscriber Identifier: NA Relationship to Subscriber: self Coverage Type: PRIVATE HEALTH INSURANCE Coverage Verification Date: NA Telecom: [phone] Address: [address] [place] [address]
--- OUTSIDE RECORDS SUMMARY | 2025-06-19 18:27 | XMS_ITS | Encounter Summary ---
Author Organization [facility] work Address [address] [place] [address] Care Team Providers Care Carbide Die Maker Name Role Phone Unavailable Primary Care Provider Unavailabl e Reason for Visit * Reason Comments UTI On antibiotics X 1 w [facility] [place], not getting better Encounter Details Date Type Department Care Team ([facility] st Contact Info) Description 06/19/2025 7:27 PM EDT - 06/19/2025 10:05 PM EDT Emergency [facility] Emergency Department [address] [place] [address] Douglas Torres MD [address] [facility] [place] [address] Urinary tract infection without hematuria, site unspecified; Trichomoniasis Discharge Disposition: Home or Self Care Social History Tobacco Use Types Packs/Day Years Used Date Smoking Tobacco: Every Day Cigarettes 0.7 22 Alcohol Use Standard Drinks/Week Comments No 0 (1 standard drink = 0.6 oz pur e alcohol) Comments No Sex and Gender Information Value Date Recorded Sex Assigned at Not on file Legal Sex Female 12:37 PM EST Gender Identity Not on file Sexual Orientation Not on file Occupation Industry Job Start Date Job End Date family yasmin Powell Not on file Not on file Not on file [employer] [place] Not on file Not on fi le Not on file Claribel Reeder Not on file Not on file Not on file documented as of this encounter Last Filed Vital Signs Vital Sign Reading Time Taken Comments Blood Pressure 137/73 06/19/2025 10:02 PM EDT Pulse 70 06/19/2025 10:02 PM EDT Temperature 36.9 C (98.4 F) 06/19/2025 6:49 PM EDT Respiratory Rate 20 06/19/2025 6:49 PM EDT Oxygen Saturation 96% 06/19/2025 10:02 PM EDT Inhaled Oxygen Concentration - - Weight 105 kg (231 lb 7.7 oz) 06/19/2025 6:49 PM EDT Height 162.6 cm (5' 4 ) 06/19/2025 8:09 PM EDT Body Mass Index 39.73 06/19/2025 6:49 PM EDT documented in this encounter Discharge Instructions * Attachments The following attachments cannot be sent through Care Everywhere. * Trichomonas Vaginal Infection (Trichomoniasis) (American) * Infections in Women, Urinary Tract (American) documented in this encounter Medications at Time of Discharge pantoprazole (PROTONIX) 20 MG delayed release tablet Take ONE tablet (20 mg total) by mouth daily. 30 tablet 11 06/19/2025 06/19/2026 busPIRone 10 MG tablet Take 10 mg by mouth 3 (three) times daily. carBAMazepine (TEGRETOL) 200 mg tablet Take 200 mg by mouth 3 (three) times daily. carvedilol (COREG) 25 MG tablet Take 25 mg by mouth 2 (two) times daily with meals. DULOXETINE HCL (CYMBALTA ORAL) Take 60 mg by mouth 2 (two) times daily. HYDROcodone-aceta minophen (NORCO) 5-325 mg tablet Take 1 tablet by mouth every 4 (four) hours as needed for Pain. 30 tablet 0 11/09/2014 hydrOXYzine (ATARAX) 25 MG tabletIndications :Anxiety Take 1 tablet (25 mg total) by mouth every 6 (six) hours as needed for Anxiety. 120 tablet 0 11/24/2015 meloxicam (MOBIC) 7.5 MG tablet Take 7.5 mg by mouth daily. pantoprazole (PROTONIX) 40 MG delayed release tablet Take 40 mg by mouth daily. cephALEXin (KEFLEX) 500 mg capsule Take ONE capsule (500 mg total) by mouth 3 (three) times daily for 7 days. 21 capsule 06/19/2025 06/26/2025 metroNIDAZOLE (FLAGYL) 500 MG tablet Take ONE tablet (500 mg total) by mouth 2 (two) times daily for 7 days. 14 tablet 06/19/2025 06/26/2025 documented as of this encounter ED Notes * Wilfred Biggs PA - 06/19/2025 7:49 PM EDT Images from the original note were not included. First Contact Date/Time Event User Comments Last Edited 06/19/251932 Time provider first saw patient WILFRED BIGGS -- 06/19/251932 History Chief Complaint Patient presents with UTI On antibiotics X 1 week, not getting better HPI History of Present Illness This is an individual with a history of urinary tract infection (UTI) presenting with abdominal pain and urinary symptoms. They were prescribed Keflex, to be taken every 12 hours for 5 days, for their UTI. Additionally, they were given Pyridium for 2 days to alleviate pain, but it did not provide relief. They report experiencing back and stomach pain, along with nausea and faintness. The pain has now localized to theirsides. They also describe an itchy, burning, and stinging sensation, with external soreness. A previous examination revealed no abnormalities, only a pink hue. They have no history of herpes. A urinetest indicated the presence of blood, suggesting a UTI. They suspect a yeast infection but have notbeen prescribed any medication for it. They report no burning sensation during urination but note increased frequency. They have observed cloudy urine and occasional skin pain during urination. They rarely consume alcohol and have no history of pancreatitis. They experience upper abdominal pain. They have undergone gallbladder removal. PAST SURGICAL HISTORY: Gallbladder removal SOCIAL HISTORY They drink alcohol very rarely. Past Medical History: Diagnosis Date Anesthesia complication had asystole with induction for lap shobha Arthritis Bursitis Chest pain Chronic anxiety Chronic back pain Chronic neck pain Dysrhythmia Elevated cholesterol Fibromyalgia GERD (gastroesophageal reflux disease) Hypercholesteremia Hypertension Lumbar spondylosis Neuropathy Obesity PONV (postoperative nausea and vomiting) Recurrent depressive psychosis (HCC) Restless leg syndrome Tobacco abuse Urinary incontinence Past Surgical History: Procedure Laterality Date CHOLECYSTECTOMY 10/20/12 coded during ET placement? HYSTERECTOMY 12/06/14December DO Karissa SALPINGECTOMY Bilateral 11/08/14 TUBAL LIGATION 1998 Family History Problem Relation Age of Onset Diabetes Father Hypertension Father Heart attack Father 9 MIs Cancer - Breast Mother 56 Cancer - Colon Neg Hx Cancer - Endometrial Neg Hx Cancer - Ovarian Neg Hx Cancer - Cervical Neg Hx Diabetes Maternal Uncle Diabetes Paternal Grandmother Diabetes Maternal Uncle Cancer - See comment Maternal Uncle Alcohol abuse Maternal Uncle Alcohol abuse 1st Cousin Melanoma 1st Cousin Social History Tobacco Use Smoking status: Every Day Current packs/day: 0.67 Average packs/day: 0.7 packs/day for 22.0 years (14.7 ttl pk-yrs) Types: Cigarettes Smokeless tobacco: Not on file Substance Use Topics Alcohol use: No Alcohol/week: 0.0 standard drinks of alcohol Drug use: No Allergies[1] Prior to Admission medications Medication Sig Start Date End Date Taking? Authorizing Provider busPIRone 10 MG tablet Take 10 mg by mouth 3 (three) times daily. Avila Liu MD carBAMazepine (TEGRETOL) 200 mg tablet Take 200 mg by mouth 3 (three) times daily. Avila Liu MD carvedilol (COREG) 25 MG tablet Take 25 mg by mouth 2 (two) times daily with meals. Avila Liu MD DULOXETINE HCL (CYMBALTA ORAL) Take 60 mg by mouth 2 (two) times daily. Avila Liu MD HYDROcodone-acetaminophen (NORCO) 5-325 mg tablet Take 1 tablet by mouth every 4 (four) hours as needed for Pain. 11/09/14 Raya Hancock, DO hydrOXYzine (ATARAX) 25 MG tablet Take 1 tablet (25 mg total) by mouth every 6 (six) hours as needed for Anxiety. 11/24/15 Raya Hancock, DO meloxicam (MOBIC) 7.5 MG tablet Take 7.5 mg by mouth daily. Avila Liu MD pantoprazole (PROTONIX) 40 MG delayed release tablet Take 40 mg by mouth daily. 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 No ulcerations, erythema, swelling visualized Physical Exam General Appearance: Normal, non toxic appearing Vital signs: Within normal limits HEENT: Within normal limits Respiratory: Within normal limits Cardiovascular: normal rate, normal pulses Gastrointestinal: Abdomen is soft. No rebound or guarding. Epigastric discomfort to palpation. No CVA tenderness. Abdomen: Abdomen is soft. No rebound or guarding. Epigastric discomfort to palpation. No CVA tenderness. Skin: Warm and dry, no rash Neurological: Normal. Alert and oriented to person, place and time. no focal deficits Psychiatric: Normal ED Course ED Lab Results Procedure Component Value Units Date/Time Bacterial vaginosis and trichomonas (vaginal) [[id number]] (Abnormal) Collected: 06/19/252029 Order Status: Completed Specimen: Body Fluid from Vagina Updated: 06/19/252125 Bv Screen Source VAGINAL Bv Screen Result -- NEGATIVE A negative result does not exclude the possibility of infection. Diagnosis should be made in conjunction with clinical symptoms. Trich Screen Source VAGINAL Trich Screen Result POSITIVE Narrative: Testing by [facility] [address] [place], [place] [address]Uqqseen by [facility] [address] [place] [address] Basic metabolic panel [[id number]] (Abnormal) Collected: 06/19/252004 Order Status: Completed Specimen: Not Stated Updated: 06/19/252056 Sodium 137 mmol/L Potassium 3.9 mmol/L Chloride 103 mmol/L CO2 25 mmol/L Glucose 146 mg/dL Glucose -- mg/dL If result of random glucose > or = 200 or if result of fasting glucose is > 125 confirm Diabetes Mellitus diagnosis with second glucose on a different day. BUN 17 mg/dL Creatinine 0.84 mg/dL eGFR 84 mL/min/1.73 M2 EGFR Comment -- mL/min/1.73 M2 Either of the following must be present for >=3 months to be Chronic Kidney Disease: -GFR less than 60 for >=3 months -Albumin to Creatinine Ratio >=30 mg/g or other markers of kidney damage An estimated GFR chronically in the range of 60-89 is categorized as mildly decreased, which corresponds to Stage G2 CKD. CKD-EPI equation (2020) used to estimate GFR Calcium 9.5 mg/dL Anion Gap 9 mmol/L Narrative: Testing by [facility] [address] [facility] [place] [address]Vjcxais by [facility] [address] [place] [address] Hepatic function panel [[id number]] (Abnormal) Collected: 06/19/252004 Order Status: Completed Specimen: Not Stated Updated: 06/19/252053 AST 24 U/L ALT 27 U/L Alkaline Phosphatase 78 U/L Bilirubin, Total 0.4 mg/dL Bilirubin, Direct <0.1 mg/dL Albumin Blood 4.7 g/dL Protein, Total 7.3 g/dL Narrative: Testing by [facility] [address] [facility], [place] [address]Sueuvck by [facility] [address] [place] [address] Lipase [[id number]] Collected: 06/19/252004 Order Status: Completed Specimen: Not Stated Updated: 06/19/252048 Lipase 110 U/L Narrative: Testing by [facility] [address] [facility], [place] [address]Zpygywp by [facility] [address] [place] [address] [place] [address] Urinalysis w/micro if Indicated, w/culture if Indicated [[id number]] (Abnormal) Collected: 06/19/251955 Order Status: Completed Specimen: CCMS Urine Updated: 06/19/252040 Glucose Urine NEGATIVE mg/dL Ketones, UA NEGATIVE mg/dL Urobilinogen Urine 0.2 E.U./dL Specific [place] Ur 1.018 Occult Blood Urine TRACE pH, UA 6.0 Protein, UA NEGATIVE mg/dL U Nitrites NEGATIVE Leukocytes, UA LARGE Color Urine YELLOW APPEARANCE URINE CLOUDY Narrative: Testing by [facility] [address] [facility], [place] [address]Hhlqlmv by [facility] [place] [address] Urinalysis Microscopic [[id number]] (Abnormal) Collected: 06/19/251955 Order Status: Completed Updated: 06/19/252040 WBC, UA >100 /HPF Epi Cell-Ur 0-5 /HPF RBC, UA 0-3 /HPF Urine Comment Micro -- This urine was examined microscopically for the presence of WBCs, RBCs, Epithelial cells, bacteria, casts, and other formed elements. Only those elements seen were reported. ZTF = 0-5 and ZTT = 0-3 Narrative: Testing by [facility] [address] [place] [address] [place] [address]Kycflhb by [facility] [address] [place] [address] [place] [address] Urine Culture [[id number]] Collected: 06/19/251955 Order Status: No result Updated: 06/19/252040 Chlamydia/Neisseria gonorrhoeae RNA, TMA, Urogenital Once Routine Self swab [[id number]] Collected: 06/19/252029 Order Status: Sent Specimen: Genital Updated: 06/19/252038 CBC and differential [[id number]] (Abnormal) Collected: 06/19/252004 Order Status: Completed Specimen: Not Stated Updated: 06/19/252034 WBC 9.4 K/CUMM RBC 5.26 M/CUMM Hemoglobin 15.4 g/dL Hematocrit 45.7 % MCV 86.9 fL MCH 29.3 pg MCHC 33.7 g/dL RDW 12.2 % Platelets 190 K/CUMM MPV 9.2 fL Diff Method Electronic WBC differential count Segs Relative 64 % Lymphocytes 29 % Monocyte 6 % Eosinophils 1 % Basophils 0 % Absolute Neutrophils 5.92 K/CUMM ABSOLUTE LYMPHOCYTES 2.76 K/CUMM Absolute Monocytes 0.56 K/CUMM ABSOLUTE EOSINOPHILS 0.13 K/CUMM ABSOLUTE BASOPHILS 0.03 K/CUMM Narrative: Testing by [facility] [address], [place] [address]Idhbfpq by [facility] [address] [place] [address] Radiology Results No results found for the last 2190 hours. ED Medication Administration from 06/19/2025 1847 to 06/19/20252145 Date/Time Order Dose Route Action 06/19/20252010 EDT ketorolac (TORADOL) injection 15 mg 15 mg Intravenous Given 06/19/20251958 EDT aluminum & magnesium hydroxide-simethicone (MAALOX MAXIMUM STRENGTH) suspension 30 mL 30 mL Oral Given 06/19/20251958 EDT lidocaine viscous 2 % mucosal solution 10 mL 10 mL Oral Given 06/19/20252007 EDT ondansetron (PF) (ZOFRAN) injection 4 mg 4 mg Intravenous Given 06/19/20252141 EDT cefTRIAXone (ROCEPHIN) 2 g in water for injection, sterile injection 2 g Intravenous Given ED Vitals None Scoring Tools Results Laboratory Studies Procedures Procedures MDM Medical Decision Making Amount and/or Complexity of Data Reviewed Labs: ordered. Risk OTC drugs. Prescription drug management. Assessment & Plan Chief Complaint: Back pain, stomach discomfort, nausea, side pain, and symptoms suggestive of a urinary tract infection (UTI) and possible yeast infection. Reports increased urinary frequency and cloudy urine. No burning during urination. Differential Diagnosis: - Urinary Tract Infection (UTI) - Treated with Keflex for 5 days, 12 hours apart - Pyridium for pain, ineffective - Plan: Recheck urine, administer GI cocktail, perform STI swabs - Yeast Infection - Symptoms: itching, burning, stinging - History of yeast infections post-antibiotic use - Plan: Prescribe antifungal pill for use if symptoms persist - Upper Abdominal Pain - Epigastric discomfort on palpation - No history of pancreatitis, rare alcohol consumption - Plan: Check abdominal labs Supporting Findings: Patient evaluated for UTI, yeast infection, and upper abdominal pain. ED Course: - Labs: Abdominal labs obtained - Interventions: Administered GI cocktail with lidocaine and Maalox, urine rechecked, STI swabs performed MDM Summary: Patient presents with symptoms suggestive of UTI and possible yeast infection, along with upper abdominal pain. GI cocktail administered, labs and urine rechecked, STI swabs performed. GI cocktail resolved her epigastric pain. Suspect she could have gastritis from recent antibiotics. Trichomonas is positive. Will send home with Flagyl and Keflex. Will send home with Protonix. Advisedto stop taking the Bactrim she was prescribed. Patient stable for discharge Discharge: Await STI results; contact if positive Medications Prescribed: Keflex for 5 days, 12 hours apart; antifungal pill for yeast infection if symptoms persist Follow-Up: Await STI results; contact if positive Clinical Impression 1. Urinary tract infection without hematuria, site unspecified 2. Trichomoniasis Disposition New Prescriptions CEPHALEXIN (KEFLEX) 500 MG CAPSULE Take ONE capsule (500 mg total) by mouth 3 (three) times daily for 7 days. METRONIDAZOLE (FLAGYL) 500 MG TABLET Take ONE tablet (500 mg total) by mouth 2 (two) times daily for 7 days. ED Disposition ED Disposition Discharge Date/Time Sun Jun 19, 2025 9:45 PM Comment -- The patient was instructed to follow up with [facility] Emergency Department [address] [facility] [address] If symptoms worsen [1] Allergies Allergen Reactions Cymbalta [Duloxetine] Nausea And Vomiting Other Other (See Comments) Hx of flat lining during intubation for gallbladder surgery at [facility] 2012 Penicillins Other (See Comments) I dont remember Ultram [Tramadol] Nausea And Vomiting Wilfred Biggs PA 06/19/252 Cosigned by Douglas Torres MD at 06/19/2025 9:48 PM EDT Associated attestation - Douglas Torres MD - 06/19/2025 9:48 PM EDT Patient was seen and evaluated by the mid-level provider and care was discussed with me and agree with care plan as documented below I personally made/approved to the management plan for this patient and take responsibility for the patient management. documented in this encounter Plan of Treatment Not on file documented as of this encounter Procedures Procedure Name Priority Date/Time Associated Diagnosis Comments BACTERIAL VAGINOSIS AND TRICHOMONAS SCREENS STAT 06/19/2025 8:30 PM EDT CHLAMYDIA/ N. GONORRHOEAE RNA, TMA, UROGENITAL Routine 06/19/2025 8:30 PM EDT CBC AND DIFFERENTIAL STAT 06/19/2025 8:05 PM EDT LIPASE STAT 06/19/2025 8:05 PM EDT HEPATIC FUNCTION PANEL STAT 06/19/2025 8:05 PM EDT BASIC METABOLIC PANEL STAT 06/19/2025 8:05 PM EDT URINALYSIS MICROSCOPIC REFLEX Routine 06/19/2025 7:56 PM EDT URINALYSIS, MICROSCOPIC IF INDICATED, CULTURE IF INDICATED STAT 06/19/2025 7:56 PM EDT URINE CULTURE Routine 06/19/2025 7:56 PM EDT documented in this encounter Results * (ABNORMAL) Bacterial vaginosis and trichomonas (vaginal) (06/19/2025 8:30 PM EDT) Bv Screen Source VAGINAL 06/19/2025 8:30 PM EDT [facility] - [facility] Bv Screen Result NEGATIVE A negative result does not exclude the possibility of infection. Diagnosis should be made in conjunction with clinical symptoms. NEGATIVE 06/19/2025 8:30 PM EDT [facility] Trich Screen Source VAGINAL 06/19/2025 8:30 PM EDT [facility] Trich Screen Result POSITIVE(A) NEGATIVE 06/19/2025 8:30 PM EDT [facility] Body Fluid VAGINAL STRUCTURE / Unknown 06/19/2025 8:30 PM EDT Narrative [facility] - 06/19/2025 9:26 PM EDT Testing by [facility] [address] [place], [place] [address]Testing by [facility] [address] [place] [address] Wilfred Alejandre Oversen OMER MICROBIOLOGY - GENERAL ORDERABLES Final Result [facility] [address] [facility] * Chlamydia/Neisseria gonorrhoeae RNA, TMA, Urogenital Once Routine Self swab (06/19/2025 8:30 PM EDT) [facility] Chlamydia Trachomatis RNA, TMA NOT DETECTED NOT DETECTED 06/19/2025 8:30 PM EDT [facility] Neisseria gonorrhoeae RNA, TMA NOT DETECTED NOT DETECTED 06/19/2025 8:30 PM EDT [facility] Neisseria gonorrhoeae RNA, TMA (NOTE) The analytical performance characteristics of this assay, when used to test SurePath(TM) specimens have been determined by [facility]. The modifications have not been cleared or approved by the FDA. This assay has been validated pursuant to the CLIA regulations and is used for clinical purposes. For additional information, please refer to https://education. [employer].c om/faq/LDV223 (This link is being provided for information/ educational purposes only.) Test performed at [facility] - [address] [address] Director: MONSTER HARDEN MD [facility] [address] [address] Monster Harden MD NOT DETECTED 06/19/2025 8:30 PM EDT [facility] Genital 06/19/2025 8:30 PM EDT 06/19/2025 8:39 PM EDT Wilfred TELLO MICROBIOLOGY - GENERAL ORDERABLES Final Result Performing Organization Address [facility]/ZIP Co de Phone Number [employer] [address] * (ABNORMAL) Hepatic function panel (06/19/2025 8:05 PM EDT) AST 24 14 - 36 U/L 06/19/2025 8:05 PM EDT [facility] ALT 27 <35 U/L 06/19/2025 8:05 PM EDT [facility] Alkaline Phosphatase 78 38 - 126 U/L 06/19/2025 8:05 PM EDT [facility] Bilirubin, Total 0.4 0.2 - 1.3 mg/dL 06/19/2025 8:05 PM EDT [facility] Bilirubin, Direct <0.1(L) 0.1 - 0.5 mg/dL 06/19/2025 8:05 PM EDT [facility] Albumin Blood 4.7 3.5 - 5.0 g/dL 06/19/2025 8:05 PM EDT [facility] Protein, Total 7.3 6.3 - 8.2 g/dL 06/19/2025 8:05 PM EDT [facility] Not Stated 06/19/2025 8:05 PM EDT 06/19/2025 8:28 PM EDT Narrative BELVIDEREQUEST - 06/19/2025 8:54 PM EDT Testing by [facility] [address] [place], [place] [address]Testing by [facility] [address] [place] [address] Wilfred TELLO LAB BLOOD ORDERABLES Fi nal Result [facility] [address] [facility] * Lipase (06/19/2025 8:05 PM EDT) Lipase 110 23 - 300 U/L 06/19/2025 8:05 PM EDT [facility] Not Stated 06/19/2025 8:05 PM EDT 06/19/2025 8:27 PM EDT Narrative LINDAQUEST - 06/19/2025 8:49 PM EDT Testing by [facility] [address] [place], [place] [address]Frtjmzs by [facility] [address] [place] [address] us Wilfred Alejandre Oversecornelius TELLO LAB BLOOD ORDERABLES Fi nal Result [facility] [address] [place] [address], [facility] * (ABNORMAL) Basic metabolic panel (06/19/2025 8:05 PM EDT) Sodium 137 137 - 145 mmol/L 06/19/2025 8:05 PM EDT [facility] Potassium 3.9 3.5 - 5.1 mmol/L 06/19/2025 8:05 PM EDT [facility] Chloride 103 98 - 107 mmol/L 06/19/2025 8:05 PM EDT [facility] - [facility] CO2 25 22 - 30 mmol/L 06/19/2025 8:05 PM EDT [facility] Glucose 146(H) 65 - 99 mg/dL 06/19/2025 8:05 PM EDT [facility] Glucose If result of random glucose > or = 200 or if result of fasting glucose is > 125 confirm Diabetes Mellitus diagnosis with second glucose on a different day. (H) 65 - 99 mg/dL 06/19/2025 8:05 PM EDT [facility] BUN 17 7 - 17 mg/dL 06/19/2025 8:05 PM EDT [facility] Creatinine 0.84 0.52 - 1.04 mg/dL 06/19/2025 8:05 PM EDT [facility] eGFR 84 >60 mL/min/1. 73 M2 06/19/2025 8:05 PM EDT [facility] EGFR Comment Either of the following must be present for >=3 months to be Chronic Kidney Disease: -GFR less than 60 for >=3 months -Albumin to Creatinine Ratio >=30 mg/g or other markers of kidney damage An estimated GFR chronically in the range of 60-89 is categorized as mildly decreased, which corresponds to Stage G2 CKD. CKD-EPI equation (2020) used to estimate GFR >60 mL/min/1. 73 M2 06/19/2025 8:05 PM EDT [facility] [place] [facility] Calcium 9.5 8.4 - 10.2 mg/dL 06/19/2025 8:05 PM EDT [facility] [place] [facility] Anion Gap 9 7 - 17 mmol/L 06/19/2025 8:05 PM EDT [facility] - [place] [facility] Not Stated 06/19/2025 8:05 PM EDT 06/19/2025 8:27 PM EDT Narrative ROXY - 06/19/2025 8:56 PM EDT Testing by [facility] [address] [place] [id number] by [facility] [address] [place] [address] [place] Wilfred Alejandre Oversen OMER LAB BLOOD ORDERABLES nal Result [facility] [address] [facility] - [place] [facility] * (ABNORMAL) CBC and differential (06/19/2025 8:05 PM EDT) WBC 9.4 3.2 - 11.0 K/CUMM 06/19/2025 8:05 PM EDT [facility] [place] [facility] RBC 5.26(H) 3.80 - 5.20 M/CUMM 06/19/2025 8:05 PM EDT [facility] [place] [facility] Hemoglobin 15.4(H) 11.6 - 15.2 g/dL 06/19/2025 8:05 PM EDT [facility] [place] [facility] Hematocrit 45.7(H) 34.4 - 45.6 % 06/19/2025 8:05 PM EDT [facility] [place] [facility] MCV 86.9 80.0 - 100.0 fL 06/19/2025 8:05 PM EDT [facility] [place] [facility] MCH 29.3 27.0 - 34.0 pg 06/19/2025 8:05 PM EDT [facility] [place] [facility] MCHC 33.7 30.5 - 34.5 g/dL 06/19/2025 8:05 PM EDT [facility] RDW 12.2 11.5 - 15.0 % 06/19/2025 8:05 PM EDT [facility] Platelets 190 150 - 450 K/CUMM 06/19/2025 8:05 PM EDT [facility] MPV 9.2 7.7 - 12.2 fL 06/19/2025 8:05 PM EDT [facility] Diff Method Electronic WBC differential count 06/19/2025 8:05 PM EDT [facility] Segs Relative 64 % 06/19/2025 8:05 PM EDT [facility] Lymphocytes 29 % 06/19/2025 8:05 PM EDT [facility] Monocyte 6 % 06/19/2025 8:05 PM EDT [facility] Eosinophils 1 % 06/19/2025 8:05 PM EDT [facility] Basophils 0 % 06/19/2025 8:05 PM EDT [facility] Absolute Neutrophils 5.92 1.30 - 6.00 K/CUMM 06/19/2025 8:05 PM EDT [facility] ABSOLUTE LYMPHOCYTES 2.76 1.00 - 3.50 K/CUMM 06/19/2025 8:05 PM EDT [facility] Absolute Monocytes 0.56 0.00 - 1.00 K/CUMM 06/19/2025 8:05 PM EDT [facility] ABSOLUTE EOSINOPHILS 0.13 0.00 - 0.70 K/CUMM 06/19/2025 8:05 PM EDT [facility] ABSOLUTE BASOPHILS 0.03 0.00 - 0.10 K/CUMM 06/19/2025 8:05 PM EDT [facility] Not Stated 06/19/2025 8:05 PM EDT 06/19/2025 8:27 PM EDT Narrative [facility] - 06/19/2025 8:34 PM EDT Testing by [facility] [address] [place], [place] [address]Hlsntmu by [facility] [address] [place] [address] us Wilfred Alejandre Oversen OMER LAB BLOOD ORDERABLES Fi nal Result [facility] [address] [employer] [facility] * Urine Culture (06/19/2025 7:56 PM EDT) Micro Comment ADEQUATE 06/19/2025 7:56 PM EDT [facility] Micro Comment (NOTE) Test performed at [facility] [place] [address] [place] [address] Director: GENA MORRIS M.D. 06/19/2025 7:56 PM EDT [facility] Urine Culture Mixed genital олег isolated. These superficial bacteria are not indicative of a urinary tract infection. No further organism identification is warranted on this specimen. If clinically indicated, recollect clean-catch, mid-stream urine and transfer immediately to Urine Culture Transport Tube. 06/19/2025 7:56 PM EDT [facility] Urine 06/19/2025 7:56 PM EDT 06/19/2025 8:26 PM EDT Douglas Torres MD MICROBIOLOGY - GENERA L ORDERABLES Final Result [facility] [address] * (ABNORMAL) Urinalysis Microscopic (06/19/2025 7:56 PM EDT) Pathologist [facility] WBC, UA >100(A) 0 - 5 /HPF 06/19/2025 7:56 PM EDT [facility] Epi Cell-Ur 0-5 0 - 5 /HPF 06/19/2025 7:56 PM EDT [facility] RBC, UA 0-3 0 - 3 /HPF 06/19/2025 7:56 PM EDT [facility] Urine Comment Micro This urine was examined microscopically for the presence of WBCs, RBCs, Epithelial cells, bacteria, casts, and other formed elements. Only those elements seen were reported. ZTF = 0-5 and ZTT = 0-3 06/19/2025 7:56 PM EDT [facility] 06/19/2025 7:56 PM EDT 06/19/2025 8:26 PM EDT Narrative [facility] - 06/19/2025 8:41 PM EDT Testing by [facility] [address], [place] [address]Testing by [facility] [address] [place] [address] Douglas Torres MD URINE ORDERABLES Gely riley Result [facility] [address] [facility] * (ABNORMAL) Urinalysis w/micro if Indicated, w/culture if Indicated (06/19/2025 7:56 PM EDT) Glucose Urine NEGATIVE NEGATIVE mg/dL 06/19/2025 7:56 PM EDT [facility] Ketones, UA NEGATIVE NEGATIVE mg/dL 06/19/2025 7:56 PM EDT [facility] Urobilinogen Urine 0.2 0.2 - 1.0 E.U./dL 06/19/2025 7:56 PM EDT [facility] Specific [place] Ur 1.018 1.003 - 1.030 06/19/2025 7:56 PM EDT [facility] Occult Blood Urine TRACE(A) NEGATIVE 06/19/2025 7:56 PM EDT [facility] pH, UA 6.0 4.5 - 8.0 06/19/2025 7:56 PM EDT [facility] Protein, UA NEGATIVE NEGATIVE mg/dL 06/19/2025 7:56 PM EDT [facility] U Nitrites NEGATIVE NEGATIVE 06/19/2025 7:56 PM EDT [facility] Leukocytes, UA LARGE(A) NEGATIVE 06/19/2025 7:56 PM EDT [facility] Color Urine YELLOW YELLOW 06/19/2025 7:56 PM EDT [facility] APPEARANCE URINE CLOUDY(A) CLEAR 06/19/20 7:56 PM EDT [facility] Urine URINE / Unknown 06/19/2025 7 :56 PM EDT 06/19/2025 8:26 PM EDT Narrative [facility] - 06/19/2025 8:36 PM EDT Testing by [facility] [address] [facility], [place] [id number] by [facility] [address] [place] [address] Chano Lara DO URINE ORDERABLES Final Resu lt [facility] [address] [place] [address], [facility] documented in this encounter Visit Diagnoses Diagnosis Urinary tract infection without hematuria, site unspecified Trichomoniasis documented in this encounter Administered Medications Inactive Administered Medications - up to 3 most recent administrations Medication Order MAR Action Action Date Dose Rate Site aluminum & magnesium hydroxide-simethicone (MAALOX MAXIMUM STRENGTH) suspension 30 mL 30 mL, Oral, Once, On 06/19/25 at 1949, 1 dose, mix mylanta maximum strength,lidocaine viscous and and administer Given 06/19/2025 7:59 PM EDT 30 mLs cefTRIAXone (ROCEPHIN) 2 g in water for injection, sterile injection 2 g, Intravenous, Once, On 06/19/25 at 2049, 1 dose, Dilute 2 gram vial in 20 mL sterile water and administer via IV push over 3-5 minutes Given 06/19/2025 9:42 PM EDT 2 g ketorolac (TORADOL) injection 15 mg 15 mg, Intravenous, Once, On 06/19/25 at 1950, 1 dose, Common side effects: swelling, itching, diarrhea, upset stomach, indigestion Given 06/19/2025 8:11 PM EDT 15 mg lidocaine viscous 2 % mucosal solution 10 mL 10 mL, Oral, Once, On 06/19/25 at 1950, 1 dose, mix mylanta maximum strength,lidocaine viscous and and administer Common side effects: taste disturbances, paresthesias, skin irriation Given 06/19/2025 7:59 PM EDT 10 mLs ondansetron (PF) (ZOFRAN) injection 4 mg 4 mg, Intravenous, Once, On 06/19/25 at 195, 1 dose, Slow IV Push over 2-5 minutes Common side effects: headache, fatigue, constipation Given 06/19/2025 8:08 PM EDT 4 mg documented in this encounter Active and Recently Administered Medications Times are shown in EDT. Scheduled Medication Order 06/17/2025 06/18/202506/19/2025 aluminum & magnesium hydroxide-simethicone (MAALOX MAXIMUM STRENGTH) suspension 30 mL (COMPLETED)(Linked Group 1) 30 mL, Oral, Once, On 06/19/25 at 1950, 1 dose, mix mylanta maximum strength,lidocaine viscous and and administer 1958 (Given - Provid er: Claribel Kim LPN) cefTRIAXone (ROCEPHIN) 2 g in water for injection, sterile injection (COMPLETED) 2 g, Intravenous, Once, On 06/19/25 at 2049, 1 dose, Dilute 2 gram vial in 20 mL sterile water and administer via IV push over 3-5 minutes 2141 (Given - Provid er: Mali Desai RN) ketorolac (TORADOL) injection 15 mg (COMPLETED) 15 mg, Intravenous, Once, On 06/19/25 at 1950, 1 dose, Common side effects: swelling, itching, diarrhea, upset stomach, indigestion 2010 (Given - Provid er: Mali Desai RN) lidocaine viscous 2 % mucosal solution 10 mL (COMPLETED)(Linked Group 1) 10 mL, Oral, Once, On 06/19/25 at 1950, 1 dose, mix mylanta maximum strength,lidocaine viscous and and administer Common side effects: taste disturbances, paresthesias, skin irriation 1958 (Given - Provid er: Claribel Kim LPN) ondansetron (PF) (ZOFRAN) injection 4 mg (COMPLETED) 4 mg, Intravenous, Once, On 06/19/25 at 195, 1 dose, Slow IV Push over 2-5 minutes Common side effects: headache, fatigue, constipation 2007 (Given - Provid er: Mali Desai RN) Linked Groups Order Group 1: aluminum & magnesium hydroxide-simethicone (MAALOX MAXIMUM STRENGTH) suspension 30 mL (COMPLETED)Jump to med 30 mL, Oral, Once, On 06/19/25 at 1950, 1 dose, mix mylanta maximum strength,lidocaine viscous and and administer And lidocaine viscous 2 % mucosal solution 10 mL (COMPLETED)Jump to med 10 mL, Oral, Once, On 06/19/25 at 1950, 1 dose, mix mylanta maximum strength,lidocaine viscous and and administer Common side effects: taste disturbances, paresthesias, skin irriation documented in this encounter
--- OUTSIDE RECORDS SUMMARY | 2025-07-27 07:37 | XMS_ITS | Clinical Summary ---
Author Organization [facility] Address [address], [address] [place] [address] Care Team Providers Care Yarn Winder Name Role Phone Unavailable Primary Care Provider Unavailabl e Allergies Active Allergy Reactions Criticality Noted Date Comments Duloxetine Hcl 06/09/2018 Tramadol Hcl 06/09/2018 Medications naproxen (NAPROSYN) 500 MG tablet Take 1 tablet by mouth 2 times daily 20 tablet 06/09/2018 Active Social History Tobacco Use Types Packs/Day Years Used Date Smoking Tobacco: Every Day Cigarettes Alcohol Use Standard Drinks/Week Comments Yes 0 (1 standard drink = 0.6 oz pur e alcohol) socially Comments No Sex and Gender Information Value Date Recorded Sex Assigned at Not on file Legal Sex Female 5:04 PM EDT Gender Identity Not on file Sexual Orientation Not on file Last Filed Vital Signs Vital Sign Reading Time Taken Comments Blood Pressure 122/70 02/13/2022 3:21 PM EDT Pulse 64 02/13/2022 3:21 PM EDT Temperature 37 C (98.6 F) 02/13/2022 3:21 PM EDT Respiratory Rate 17 02/13/2022 3:21 PM EDT Oxygen Saturation 98% 02/13/2022 3:21 PM EDT Inhaled Oxygen Concentration - - Weight 101.6 kg (224 lb) 02/13/2022 10:10 AM EDT Height 162.6 cm (5' 4 ) 02/13/2022 10:10 AM EDT Body Mass Index 38.45 02/13/2022 10:10 AM EDT Plan of Treatment Not on file Insurance GENERIC O [facility] GENERIC O on file [employer] Member Subscriber Plan / Payer ( fective 2020-Present) Name:Trupti Lewis Relation to Subscriber:Self Name:Trupti Lewis Payer ID:Not on file Type:Not on file Address: [address]
--- OUTSIDE RECORDS SUMMARY | 2025-07-27 07:37 | XMS_ITS | Clinical Summary ---
Author Organization [facility] Address [address] [place] [address] Care Team Providers Care Data Science And Iot Manager Name Role Phone Michael Zepeda MD Primary Care Provider Ansley vailable Allergies Active Allergy Reactions Criticality Noted Date Comments Duloxetine Nausea Only 03/20/2016 Tramadol Nausea And Vomiting High 03/20/2016 Medications hydrOXYzine (ATARAX) 25 MG tabletIndications :Panic attack (CMS/HCC) Take twice daily for anxiety control and may use an extra tablet as needed for panic attacks. 80 tablet 11 12/31/2016 1:23 PM EDT 7 Active lisinopril (PRINIVIL,ZESTRIL ) 10 MG tabletIndications :Essential hypertension with goal blood pressure less than 140/90 (CMS/HCC) Take 1 tablet (10 mg total) by mouth daily. 40 tablet 1 12/31/2016 1:22 PM EDT 7 Active meloxicam (MOBIC) 15 MG tabletIndications :Arthritis Take 1 tablet (15 mg total) by mouth daily. 30 tablet 7 12/31/2016 1:22 PM EDT 7 Active pantoprazole (PROTONIX) 40 MG tabletIndications :Gastroesophageal reflux disease without esophagitis Take 1 tablet (40 mg total) by mouth daily. 30 tablet 3 12/18/2016 9:12 AM EDT 7 Active oxybutynin (DITROPAN) 5 MG tablet Take 1 tab by mouth 2 times daily- sub for Detrol LA 60 tablet 7 12/31/2016 1:21 PM EDT 7 Active Active Problems Problem Noted Date Diagnosed Date Cardiac LV ejection fraction >40% 11/29/2016 Overview (11/29/2016): 04/2016 - Normal LV function. Mild concentric left ventricular hypertrophy. Left ventricular ejection fraction is measured at 70%, with normal wall motion. There is mild to moderate regurgitation of the tricuspid valve.Estimated right ventricular systolic pressure equals 35 mmHg. Precordial chest pain 11/29/2016 Rash of groin 11/08/2016 Overview (11/08/2016): Rash on lisa breasts OAB (overactive bladder) 10/18/2016 Mixed hyperlipidemia 10/18/2016 Slow transit constipation 07/17/2016 Hepatic steatosis 07/17/2016 Anxiety and depression 06/03/2016 Overview (10/17/2016): Chronic for 18 years, 3-6 panic attacks yearly Osteoarthritis of spine with radiculopathy, cerv ical region 05/06/2016 Fibromyalgia 03/20/2016 Carpal tunnel syndrome, bilateral 03/20/2016 Essential hypertension with goal blood pressure less than 140/90 03/20/2016 Gastroesophageal reflux disease without esophagi tis 03/20/2016 Resolved Problems Problem Noted Date Diagnosed Date Resolved Date Encounter for gynecological examination with Papanicolaou smear of cervix 11/08/2016 01/17/2017 Non-rheumatic tricuspid valve insufficiency 05/21/2016 12/02/2016 Near syncope 04/15/2016 10/17/2016 Family History Medical History Relation Comments Diabetes Father Heart disease Father 9 HI - 1st in 40 's. Had 2 Bypass surgeries. age 60. Breast cancer Mother Relation Status Comments Father Mother Alive Social History Tobacco Use Types Packs/Day Years Used Date Smoking Tobacco: Heavy Smoker Cigarettes 1 24 Smokeless Tobacco: Never Alcohol Use Standard Drinks/Week Comments No 0 (1 standard drink = 0.6 oz pur e alcohol) rare Comments No Sex and Gender Information Value Date Recorded Sex Assigned at Not on file Legal Sex Female 9:15 AM EDT Gender Identity Not on file Sexual Orientation Not on file Last Filed Vital Signs Vital Sign Reading Time Taken Comments Blood Pressure 129/84 01/17/2017 11:14 AM EDT Pulse 69 01/17/2017 11:14 AM EDT Temperature 36.9 C (98.4 F) 11/22/2016 10:19 PM EST Respiratory Rate 17 01/17/2017 11:14 AM EDT Oxygen Saturation 98% 01/17/2017 11:14 AM EDT Inhaled Oxygen Concentration - - Weight 95.3 kg (210 lb 3.2 oz) 01/17/2017 11:14 AM EDT Height 162.6 cm (5' 4 ) 01/17/2017 11:14 AM EDT Body Mass Index 36.08 01/17/2017 11:14 AM EDT Plan of Treatment Health Maintenance Due Date Last Done Comments CT Colonography 1973 Cologuard 1973 Colonoscopy 1973 Colorectal Cancer Screening 1973 Flexible Sigmoidoscopy 1973 Occult Blood Fecal Immuno Te st (FIT) Screen 1973 Hepatitis B Vaccines (1 of 3 - 19+ 3-dose series) 1992 Iixbodl-Zgqypscozq-Rxhqpupam Vaccines (1 - Tdap) 1992 Mammogram 11/01/2017 11/01/2016 Pneumococcal Age 50 and olde r (1 of 1 - PCV) 2023 Shingles Vaccine (Non-Medica re; Age 50+ or All Ages Risk Series) (1 of 2) 2023 Influenza Vaccine(s) (#1) 2025 RSV for patients an d patients 60yrs or older (1 - 1-dose 75+ series) 2048 Hib Vaccines Aged Out No longer eligi ble based on patient's age to complete this topic Meningococcal (MCV4) Vaccines Aged Out No longer eligible based on patient's age to complete [place] [id number] Care Teams Data Science And Iot Manager Relationship Specialty Start Date End Date Michael Zepeda MD PCP - General Family Medicine 10/11/16
--- OUTSIDE RECORDS SUMMARY | 2025-07-27 07:37 | XMS_ITS | Encounter Summary ---
Author Organization [facility] work Address [address] [place], [place] [id number] Care Team Providers Care Monument Carver Name Role Phone Unavailable Primary Care Provider Unavailabl e Encounter Details Date Type Department Care Team (Latest Contact Info) Description 06/19/2025 Travel Social History Tobacco Use Types Packs/Day Years [...] Not on fi le Not on file Giulia Not on file Not on file Not on file documented as of this encounter Plan of Treatment Not on file documented as of this encounter Visit Diagnoses Not on filedocumented in this encounter
--- OUTSIDE RECORDS SUMMARY | 2025-07-27 07:37 | XMS_ITS | Clinical Summary ---
Author Organization [employer] work Address [address] [place] [address] Care Team Providers Care Atm Servicer Name Role Phone Unavailable Primary Care Provider Unavailabl e Allergies Active Allergy Reactions Criticality Noted Date Comments Duloxetine Nausea And Vomiting 01/29/2023 Other Other (See Comments) 11/01/2014 Hx of flat lining during intubation for gallbladder surgery at [facility] 2013 Penicillins Other (See Comments) 01/29/2023 I dont remember Tramadol Nausea And Vomiting 09/24/2012 Medications DULOXETINE HCL (CYMBALTA ORAL) Take 60 mg by mouth 2 (two) times daily. Active carBAMazepine (TEGRETOL) 200 mg tablet Take 200 mg by mouth 3 (three) times daily. Active busPIRone 10 MG tablet Take 10 mg by mouth 3 (three) times daily. Active carvedilol (COREG) 25 MG tablet Take 25 mg by mouth 2 (two) times daily with meals. Active pantoprazole (PROTONIX) 40 MG delayed release tablet Take 40 mg by mouth daily. Active HYDROcodone-acet aminophen (NORCO) 5-325 mg tablet Take 1 tablet by mouth every 4 (four) hours as needed for Pain. 30 tablet 0 11/09/2014 Active meloxicam (MOBIC) 7.5 MG tablet Take 7.5 mg by mouth daily. Active hydrOXYzine (ATARAX) 25 MG tabletIndication s:Anxiety Take 1 tablet (25 mg total) by mouth every 6 (six) hours as needed for Anxiety. 120 tablet 0 11/24/2015 Active pantoprazole (PROTONIX) 20 MG delayed release tablet Take ONE tablet (20 mg total) by mouth daily. 30 tablet 11 06/19/2025 Active Active Problems Problem Noted Date Diagnosed Date S/P hysterectomy 11/08/2014 Tobacco abuse 09/15/2014 HTN (hypertension) GERD (gastroesophageal reflux disease) Elevated cholesterol Resolved Problems Problem Noted Date Diagnosed Date Resolved Date Chest pain 11/27/2018 Encounters Date Type Department Care Team Description 06/19/2025 7:27 PM EDT - 06/19/2025 10:05 PM EDT [facility] Emergency Department [address] [place] [address] Douglas Trores MD Urinary tract infection without hematuria, site unspecified; Trichomoniasis Discharge Disposition: Home or Self Care 06/19/2025 Travel from Last 3 Months Family History Medical History Relation Comments Alcohol abuse 1st Cousin Melanoma 1st Cousin Diabetes Father Heart attack Father 9 MIs Hypertension Father Cancer - See comment Maternal Uncle 1 Diabetes Maternal Uncle 1 Diabetes Maternal Uncle 2 Alcohol abuse Maternal Uncle 3 Cancer - Breast Mother Diabetes Paternal Grandmother Cancer - Cervical Neg Hx Cancer - Colon Neg Hx Cancer - Endometrial Neg Hx Cancer - Ovarian Neg Hx Relation Status Comments 1st Cousin Alive Father Maternal Aunt Maternal Grandfather Maternal Grandmother Maternal Uncle 1 Maternal Uncle 2 Maternal Uncle 3 Mother Alive Paternal Grandfather Paternal Grandmother Sister 1 Alive 1/2 maternal Sister 2 Alive 1/2 paternal Social History Tobacco Use Types Packs/Day Years [...] file Not on file Not on file Last Filed Vital Signs [...] Mass Index 39.73 06/19/2025 6:49 PM EDT Plan of Treatment Health Maintenance Due Date Last Done Comments Annual Physical Exam 1973 CT Colonography Colorectal Cancer Screening 1973 Colonoscopy Colorectal Cancer Screening 1973 Colorectal Cancer Screening 1973 FIT-DNA (Cologuard) Colorectal Cancer Screening 1973 FOBT Colorectal Cancer Screening 1973 Hepatitis C Screening 1973 SDOH 1973 Sigmoidoscopy Colorectal Cancer Screening 1973 Hepatitis B Vaccines (Adult) (1 of 3 - 19+ 3-dose series) 1992 Pneumococcal Vaccine: 50+ Years (1 of 2 - PCV) 1992 Tetanus/Pertussis Adult Vaccine (One-time Booster) 1992 Mammogram 11/01/2017 11/01/2016, 11/20, 09/24/2013 Zoster Vaccines (1 of 2) 2023 Annual Adult Depression Screen 09/22/2024 COVID-19 Vaccine ( season) 2025 Influenza Vaccine (#1) 2025 Hypertension Annual Blood Pressure Screening 06/19/2026 06/19/2025 Diabetes Screening 06/19/2028 06/19/2025, 1 , 07/18/2023, Additional history exists Meningococcal Vaccine (MCV4) Aged Out No longer eligible based on patient's age to complete this topic Medical Devices Implanted Type Area It Administrative Assistant Device Identifier Shelf Expiration Date Model / Serial / Lot Matrix Hemostatic 10ml Floseal ([id number]) - [id number] Implanted:Qty: 1 on 11/08/2014 by Raya Hancock DO at [facility] 10/22/2015 [id number] / / [id number] Procedures Procedure Name Priority Date/Time Associated Diagnosis Comments BACTERIAL VAGINOSIS AND TRICHOMONAS SCREENS STAT 06/19/2025 8:30 PM EDT CHLAMYDIA/ N. GONORRHOEAE RNA, TMA, UROGENITAL Routine 06/19/2025 8:30 PM EDT HEPATIC FUNCTION PANEL STAT 06/19/2025 8:05 PM EDT LIPASE STAT 06/19/2025 8:05 PM EDT BASIC METABOLIC PANEL STAT 06/19/2025 8:05 PM EDT CBC AND DIFFERENTIAL STAT 06/19/2025 8:05 PM EDT URINALYSIS MICROSCOPIC REFLEX Routine 06/19/2025 7:56 PM EDT URINALYSIS, MICROSCOPIC IF INDICATED, CULTURE IF INDICATED STAT 06/19/2025 7:56 PM EDT URINE CULTURE Routine 06/19/2025 7:56 PM EDT MAMMO SCREENING BILATERAL Routine 12/06/2015 1:58 PM EDT Breast cancer screening from Last 3 Months or Most Recently Relevant to Health Maintenance Results * (ABNORMAL) Bacterial vaginosis and trichomonas (vaginal) (06/19/2025 8:30 PM EDT) Bv Screen Source VAGINAL 06/19/2025 8:30 PM EDT Somewhere Bv Screen Result NEGATIVE A negative result does not exclude the possibility of infection. Diagnosis should be made in conjunction with clinical symptoms. NEGATIVE 06/19/2025 8:30 PM EDT Somewhere Trich Screen Source VAGINAL 06/19/2025 8:30 PM EDT Somewhere Trich Screen Result POSITIVE(A) NEGATIVE 06/19/2025 8:30 PM EDT Somewhere Body Fluid VAGINAL STRUCTURE / Unknown 06/19/2025 8:30 PM EDT Narrative [facility]QUEST - 06/19/2025 9:26 PM EDT Testing by [facility] [address] [facility] [place] [address]Yhrrxfu by [facility] [address] [facility] [place] [address] Wilfred Hill Biggs PA MICROBIOLOGY - GENERAL ORDERABLES Final Result Performing Organization Address [facility] Co de Phone Number [employer] [address] [facility] - [facility] * Chlamydia/Neisseria gonorrhoeae RNA, TMA, Urogenital Once Routine Self swab (06/19/2025 8:30 PM EDT) Chlamydia Trachomatis RNA, TMA NOT DETECTED NOT DETECTED 06/19/2025 8:30 PM EDT [facility] Neisseria gonorrhoeae RNA, TMA NOT DETECTED NOT DETECTED 06/19/2025 8:30 PM EDT [facility] Neisseria gonorrhoeae RNA, TMA (NOTE) The analytical performance characteristics of this assay, when used to test SurePath(TM) specimens have been determined by [facility]. The modifications have not been cleared or approved by the FDA. This assay has been validated pursuant to the CLIA regulations and is used for clinical purposes. For additional information, please refer to https://education. [employer] om/faq/TJR485 (This link is being provided for information/ educational purposes only.) Test performed at [facility] [address] [address] Director: MONSTER HARDEN MD [facility] [address] [address] Monster Harden MD NOT DETECTED 06/19/2025 8:30 PM EDT [employer] Genital 06/19/2025 8:30 PM EDT 06/19/2025 8:39 PM EDT Wilfred TELLO MICROBIOLOGY - GENERAL ORDERABLES Final Result Performing Organization Address [facility]/ZIP Co de Phone Number [employer] [address] * (ABNORMAL) CBC and differential (06/19/2025 8:05 PM EDT) WBC 9.4 3.2 - 11.0 K/CUMM 06/19/2025 8:05 PM EDT [facility] [employer] [facility] RBC 5.26(H) 3.80 - 5.20 M/CUMM 06/19/2025 8:[address] [facility] Hemoglobin 15.4(H) 11.6 - 15.2 g/dL 06/19/2025 8:[address] [facility] Hematocrit 45.7(H) 34.4 - 45.6 % 06/19/2025 8:[address] [facility] MCV 86.9 80.0 - 100.0 fL 06/19/2025 8:05 PM EDT [facility] MCH 29.3 27.0 - 34.0 pg 06/19/2025 8:[address] [facility] MCHC 33.7 30.5 - 34.5 g/dL 06/19/2025 8:[address] [facility] RDW 12.2 11.5 - 15.0 % 06/19/2025 8:[address] [facility] Platelets 190 150 - 450 K/CUMM 06/19/2025 8:[address] [facility] MPV 9.2 7.7 - 12.2 fL 06/19/2025 8:[address] [facility] Diff Method Electronic WBC differential count 06/19/2025 8:[address] [facility] Segs Relative 64 % 06/19/2025 8:[address] [facility] Lymphocytes 29 % 06/19/2025 8:[address] [facility] Monocyte 6 % 06/19/2025 8:05 PM EDT [facility] Eosinophils 1 % 06/19/2025 8:05 PM EDT [facility] Basophils 0 % 06/19/2025 8:[address] [facility] Absolute Neutrophils 5.92 1.30 - 6.00 K/CUMM 06/19/2025 8:05 PM EDT [facility] ABSOLUTE LYMPHOCYTES 2.76 1.00 - 3.50 K/CUMM 06/19/2025 8:[address] [facility] Absolute Monocytes 0.56 0.00 - 1.00 K/CUMM 06/19/2025 8:05 PM EDT [facility] ABSOLUTE EOSINOPHILS 0.13 0.00 - 0.70 K/CUMM 06/19/2025 8:05 PM EDT [facility] ABSOLUTE BASOPHILS 0.03 0.00 - 0.10 K/CUMM 06/19/2025 8:05 PM EDT [facility] Not Stated 06/19/2025 8:05 PM EDT 06/19/2025 8:27 PM EDT Narrative SUNQUEST - 06/19/2025 8:34 PM EDT Testing by [facility] [address] [place], [place] [address]Testing by [facility] [address] [place] [address] us Wilfred Hill Oversen PA LAB BLOOD ORDERABLES Fi nal Result Performing Organization Address City/[facility] Co de Phone Number [facility] [address] Diagnostics - [facility] * Lipase (06/19/2025 8:05 PM EDT) Lipase 110 23 - 300 U/L 06/19/2025 8:05 PM EDT [facility] - [facility] Not Stated 06/19/2025 8:05 PM EDT 06/19/2025 8:27 PM EDT Narrative SUNQUEST - 06/19/2025 8:49 PM EDT Testing by [facility] [address] [place], [place] [address]Testing by [facility] [address] [place] [address] us Wilfred Hill Oversen PA LAB BLOOD ORDERABLES Fi nal Result Performing Organization Address City/[facility] Co de Phone Number [facility] [address] [facility] - [facility] * (ABNORMAL) Hepatic function panel (06/19/2025 8:05 PM EDT) AST 24 14 - 36 U/L 06/19/2025 8:05 PM EDT [facility] ALT 27 <35 U/L 06/19/2025 8:05 PM EDT [facility] Alkaline Phosphatase 78 38 - 126 U/L 06/19/2025 8:05 PM EDT [facility] - [facility] Bilirubin, Total 0.4 0.2 - 1.3 mg/dL 06/19/2025 8:05 PM EDT [facility] [employer] Bilirubin, Direct <0.1(L) 0.1 - 0.5 mg/dL 06/19/2025 8:05 PM EDT [facility] - [facility] Albumin Blood 4.7 3.5 - 5.0 g/dL 06/19/2025 8:05 PM EDT [facility] [employer] Protein, Total 7.3 6.3 - 8.2 g/dL 06/19/2025 8:05 PM EDT [facility] [employer] Not Stated 06/19/2025 8:05 PM EDT 06/19/2025 8:28 PM EDT Narrative ROXY - 06/19/2025 8:54 PM EDT Testing by [facility] [address] [place], [place] [address]Testing by [facility] [address] [place] [address] us Wilfred Alejandre Oversen OMER LAB BLOOD ORDERABLES nal Result [facility] [address] [facility] - [facility] * (ABNORMAL) Basic metabolic panel (06/19/2025 8:05 PM EDT) Sodium 137 137 - 145 mmol/L 06/19/2025 8:05 PM EDT [facility] - [facility] Potassium 3.9 3.5 - 5.1 mmol/L 06/19/2025 8:05 PM EDT [facility] - [facility] Chloride 103 98 - 107 mmol/L 06/19/2025 8:05 PM EDT [facility] - [facility] CO2 25 22 - 30 mmol/L 06/19/2025 8:05 PM EDT [facility] - [facility] Glucose 146(H) 65 - 99 mg/dL 06/19/2025 8:05 PM EDT [facility] - [facility] Glucose If result of random glucose > or = 200 or if result of fasting glucose is > 125 confirm Diabetes Mellitus diagnosis with second glucose on a different day. (H) 65 - 99 mg/dL 06/19/2025 8:05 PM EDT [facility] - [facility] BUN 17 7 - 17 mg/dL 06/19/2025 8:05 PM EDT [facility] Creatinine 0.84 0.52 - 1.04 mg/dL 06/19/2025 8:05 PM EDT [facility] eGFR 84 >60 mL/min/1. 73 M2 06/19/2025 8:05 PM EDT [facility] EGFR Comment Either of the following must [...] mL/min/1. 73 M2 06/19/2025 8:05 PM EDT [facility] Calcium 9.5 8.4 - 10.2 mg/dL 06/19/2025 8:05 PM EDT [facility] Anion Gap 9 7 - 17 mmol/L 06/19/2025 8:05 PM EDT [facility] Not Stated 06/19/2025 8:05 PM EDT 06/19/2025 8:27 PM EDT Narrative SUNQUEST - 06/19/2025 8:56 PM EDT Testing by [facility] [address], [place] [address]Testing by [facility] [address] [place] [address] us Wilfred Alejandre Oversen PA LAB BLOOD ORDERABLES Fi nal Result Performing Organization Address City/State/[facility] Co de Phone Number [employer] [address] [facility] * (ABNORMAL) Urinalysis Microscopic (06/19/2025 7:56 PM EDT) WBC, UA >100(A) 0 - 5 /HPF 06/19/2025 7:56 PM EDT [facility] Epi Cell-Ur 0-5 0 - 5 /HPF 06/19/2025 7:56 PM EDT [facility] RBC, UA 0-3 0 - 3 /HPF 06/19/2025 7:56 PM EDT [facility] Urine Comment Micro This urine was examined microscopically for the presence of WBCs, RBCs, Epithelial cells, bacteria, casts, and other formed elements. Only those elements seen were reported. ZTF = 0-5 and ZTT = 0-3 06/19/2025 7:56 PM EDT Somewhere 06/19/2025 7:56 PM EDT 06/19/2025 8:26 PM EDT Narrative [facility]QUEST - 06/19/2025 8:41 PM EDT Testing by [facility] [address] [place], [place] [address]Testing by [facility] [address] [place] [address] us Douglas Torres MD URINE ORDERABLES Gely riley Result [facility] [address] [facility] * (ABNORMAL) Urinalysis w/micro if Indicated, w/culture if Indicated (06/19/2025 7:56 PM EDT) Glucose Urine NEGATIVE NEGATIVE mg/dL 06/19/2025 7:56 PM EDT Somewhere Ketones, UA NEGATIVE NEGATIVE mg/dL 06/19/2025 7:56 PM EDT [facility] Urobilinogen Urine 0.2 0.2 - 1.0 E.U./dL 06/19/2025 7:56 PM EDT [facility] [employer] Specific [place] Ur 1.018 1.003 - 1.030 06/19/2025 7:56 PM EDT [facility] Occult Blood Urine TRACE(A) NEGATIVE 06/19/2025 7:56 PM EDT [facility] pH, UA 6.0 4.5 - 8.0 06/19/2025 7:56 PM EDT Somewhere Protein, UA NEGATIVE NEGATIVE mg/dL 06/19/2025 7:56 PM EDT [facility] U Nitrites NEGATIVE NEGATIVE 06/19/2025 7:56 PM EDT [facility] [employer] Leukocytes, UA LARGE(A) NEGATIVE 06/19/2025 7:56 PM EDT Somewhere Color Urine YELLOW YELLOW 06/19/2025 7:56 PM EDT Somewhere APPEARANCE URINE CLOUDY(A) CLEAR 06/19/20 7:56 PM EDT [facility] - [facility] Urine URINE / Unknown 06/19/2025 7 :56 PM EDT 06/19/2025 8:26 PM EDT Narrative SUNQUEST - 06/19/2025 8:36 PM EDT Testing by [facility] [address] [place], [place] [address]Testing by [facility] [address] [place] [address] Chano Lara DO URINE ORDERABLES Final Resu lt Performing Organization Address [facility]/ZIP Co de Phone Number [facility] [address] [facility] - [facility] * Urine Culture (06/19/2025 7:56 PM EDT) Micro Comment ADEQUATE 06/19/2025 7:56 PM EDT [facility] Comment (NOTE) Test performed at [facility] [address] [address] Director: GENA MORRIS M.D. 06/19/2025 7:56 PM EDT [facility] Urine Culture Mixed genital олег isolated. These superficial bacteria are not indicative of a urinary tract infection. No further organism identification is warranted on this specimen. If clinically indicated, recollect clean-catch, mid-stream urine and transfer immediately to Urine Culture Transport Tube. 06/19/2025 7:56 PM EDT [facility] Urine 06/19/2025 7:56 PM EDT 06/19/2025 8:26 PM EDT Douglas Torres MD MICROBIOLOGY - GENERA L ORDERABLES Final Result Performing Organization Address [facility] Co de Phone Number [facility] [address] * Mammography screening bilateral (12/06/2015 1:58 PM EDT) Anatomical Region Laterality Modality Breast Bilateral Mammography Narrative 12/06/2015 4:37 PM EDT Bilateral Digital Mammogram, Routine ORDERED BY: RAYA HANCOCK Patient Name: TRUPTI ESPINOZA : 1975 Indication: Screening Mammogram Comparisons: 12/06/2015 Mammography outside exam for review only at [facility] 09/23/2013 MAMMO SCREENING BILATERAL at [facility] OP Technique: Standard bilateral digital mammogram images were obtained with CAD. There are scattered areas of fibroglandular density. There are no suspicious masses, suspicious microcalcifications, or architectural distortion. Impression: No evidence of malignancy. Recommendations: Monthly breast self-examination. Annual physical examination. Screening mammogram in one year. Final Assessment Category: NEGATIVE (BIRADS Category 1) The patient is being informed of these results in writing. The patient will be sent a reminder when the next annual screening mammogram is due. December. Karissa DO [facility] [place]AM[place] ORDERABLES F inal Result from Last 3 Months or Most Recently Relevant to Health Maintenance [place] [facility] [place]: [facility] [id number] [place] [address] Advance Directives For more information, please contact: [phone] * Full Code (Latest Code Status on File) Date Activated Date Inactivated Comments 11/08/2014 11:45 AM 11/09/2014 10:31 PM
--- OUTSIDE RECORDS SUMMARY | 2025-07-27 07:37 | XMS_ITS | Encounter Summary ---
Author Organization [facility] Address [address] [place] [address] Phone Care Team Providers Care Rail Car Unloader Name Role Phone Marianne Ghosh MD Primary Care Provid er Azra Du NP Primary Care Provider [phone] Encounter Details Date Type Department Care Team (Late st Contact Info) Description 10/11/2020 Abstract [facility] [address] [facility] [address] [place] [address] Marianne Ghosh MD [address] [place] [address] Social History Smoking Status as of 10/03/2020 Tobacco Use Types Packs/Day Years Used Date Smoking Tobacco: Every Day Smokeless Tobacco: Never Alcohol Use as of 10/03/2020 Alcohol Use Standard Drinks/Week Comments Yes 0 (1 standard drink = 0.6 oz pur e alcohol) VERY RARE Comments No Sex and Gender Information Value Date Recorded Sex Assigned at Not on file Legal Sex Female 9:05 PM EST Gender Identity Not on file Sexual Orientation Not on file COVID-19 Exposure Response Date Recorded In the last month, have you been in contact with someone who was confirmed or suspected to have Coronavirus / COVID-19? No / Unsure 10/12/2020 7:52 AM EST documented as of this encounter Plan of Treatment Not on file documented as of this encounter Visit Diagnoses Not on filedocumented in this encounter Care Teams Rail Car Unloader Relationship Specialty Start Date End Date Marianne Ghosh MD PCP - General Emergency Medicine 05/12/20 07/09/24 Azra Du NP [address] [address] PCP - General Nurse Practitioner 07/10/24 documented as of this encounter
--- OUTSIDE RECORDS SUMMARY | 2025-07-27 07:37 | XMS_ITS | Encounter Summary ---
Author Organization [facility] Address [address] [place] [address] Care Team Providers Care Resource Specialist Teacher Name Role Phone Michael Zepeda MD Primary Care Provider Ansley vailable Encounter Details Date Type Department Care Team (Late st Contact Info) Description 01/22/[address] [facility] [address] [place] [address] Marycruz Mohamud MA Social History Tobacco Use Types Packs/Day Years [...] on file Sexual Orientation Not on file documented as of this encounter Progress Notes * Marycruz Mohamud MA - 01/22/2017 8:53 AM EDT Power Press Operator talked to pt and she will be in sometime next week to picker / packer the hand written scripts. EC documented in this encounter Plan of Treatment Not on file documented as of this encounter Visit Diagnoses Not on filedocumented in this encounter Care Teams Resource Specialist Teacher Relationship Specialty Start Date End Date Michael Zepeda MD PCP - General Family Medicine 10/11/16 documented as of this encounter
--- OUTSIDE RECORDS SUMMARY | 2025-07-27 07:37 | XMS_ITS | Encounter Summary ---
Author Organization [facility] work Address [address] [id number] Care Team Providers Care Director Of First Impressions Name Role Phone Brian Loving COMPTROLLER Primary Care Provider [phone] Reason for Visit * Reason Onset Date Comments Discharge Call Center 07/03/2015 Encounter Details Date Type Department Care Team (Late st Contact Info) Description 07/03/2015 Telephone DISCHARGE CALL CENTER [address] [phone] Marianne Reardon, insurance appraiser Call Center Social History Tobacco Use Types Packs/Day Years Used Date Smoking Tobacco: Every Day Cigarettes 1 22 Alcohol Use Standard Drinks/Week Comments No 0 (1 standard drink = 0.6 oz pur e alcohol) Comments No Sex and Gender Information Value Date Recorded Sex Assigned at Not on file Legal Sex Female 12:37 PM EST Gender Identity Not on file Sexual Orientation Not on file documented as of this encounter Miscellaneous Notes * Telephone Encounter - Marianne Reardon RN - 07/03/2015 6:51 PM EDT Provided patient with information for our child protective services social worker to obtain a voucher for follow up care at the [facility]. Patient was appreciative. She didn't have any questions or concerns from her visit. documented in this encounter Plan of Treatment Not on file documented as of this encounter Visit Diagnoses Not on filedocumented in this encounter Care Teams Director Of First Impressions Relationship Specialty Start Date End Date Brian Loving NP [address] [place] [address] PCP - General 06/18/15 07/17/15 documented as of this encounter
--- OUTSIDE RECORDS SUMMARY | 2025-07-27 07:37 | XMS_ITS | Clinical Summary ---
Author Organization [facility] Address [address] [address] Phone Care Team Providers Care Passenger Booking Clerk Name Role Phone Azra Du NP Primary Care Provider [phone] Allergies Active Allergy Reactions Criticality Noted Date Comments Duloxetine Nausea Only High 03/20/2016 Other Grafton-3s Other (See Comments) Low 11/01/2014 Hx of flat lining during intubation for gallbladder surgery at [facility] 2013 Penicillin Nausea And Vomiting Medium 10/03/2020 Penicillins Nausea Only High 03/28/2022 Tramadol Nausea And Vomiting,Nausea Only High 09/24/2012 Medications hydrOXYzine (ATARAX) 25 mg tablet TAKE 1 TO 1 & 1 2 (ONE TO ONE & ONE HALF) TABLETS BY MOUTH EVERY 6 HOURS NEEDED 0 Active omeprazole (PRILOSEC) 40 mg capsule Take 40 mg by mouth daily 0 Active oxybutynin (DITROPAN) 5 mg tablet Take 5 mg by mouth 2 (two) times daily 0 Active diclofenac (VOLTAREN) 75 mg EC tablet Take 1 Tab by mouth 2 (two) times daily 60 Tab 1 1 Active Additional Information Patient not taking.Reported on 12/17/2024 estradioL (ESTRACE) 0.5 mg tablet Take 0.5 mg by mouth 0 Active fluconazole (DIFLUCAN) 150 mg tablet Take 150 mg by mouth 0 Active nicotine (NICODERM CQ) 14 mg/[address] onto the skin 0 Active nicotine (NICODERM CQ) 21 mg/[address] onto the skin 0 Active nicotine (NICODERM CQ) 7 mg/[address] the skin 0 Active predniSONE (DELTASONE) 10 mg tablet TAKE 4 TABLETS BY MOUTH ONCE DAILY FOR 3 DAYS THEN 3 ONCE DAILY FOR 3 DAYS THEN 2 ONCE DAILY FOR 3 DAYS THEN 1 ONCE DAILY FOR 3 DAYS - TAKE IN THE MORNING WITH FOOD 4 Active doxycycline (MONODOX) 100 mg capsule Take 1 (one) Capsule by mouth 2 (two) times daily 14 Capsule 4 Active Additional Information Patient not taking.Reported on 10/16/2024 metroNIDAZOLE (METROCREAM) 0.75 % cream 4 Active benzonatate (TESSALON) 200 mg capsule Take 1 (one) Capsule by mouth 3 (three) times daily as needed 30 Capsule 5 Active Additional Information Patient not taking.Reported on 12/17/2024 semaglutide, weight loss, (WEGOVY) 0.25 mg/0.5 mL pen-injector See Instructions, 0.25 mg Subcutaneous qWeek X 4 weeks then 0.5 mg weekly X 4 weeks in the abdomen, thigh, or upper arm, # 1 EA, 0 Refill(s), Pharmacy: [facility], please send syringes and bill patient directly, 0.25 mg Subcutaneous qWeek X 4 weeks then 0.5 mg weekly X 4 weeks; in the abdomen, thigh, or upper arm, 162.56, cm, 12/13/24 9:19:00 EDT, Height, 104.96, kg, 12/13/24 9:20:00 EDT, Weight Dosing 5 Active Hospital, Clinic, or Other Facility Administered Medication Ordered Dose Route Frequency Start Date End Date Status ibuprofen (ADVIL,MOTRIN) tablet 800 mgIndications:Influen za A 800 mg PO EVERY 6 HOURS PRN 10/16/2024 Active Active Problems No known active problems Family History Medical History Relation Name Comments No Known Problems Natural daughter Heart Attack Natural father Heart Disease Natural father Breast Cancer Natural mother Cancer Natural mother No Known Problems Natural sister 1 No Known Problems Natural sister 2 No Known Problems Natural son Relation Name Status Comments Natural daughter Alive Natural father Natural mother Alive Natural sister 1 Alive Natural sister 2 Alive Natural son Alive Social History Tobacco Use Types Packs/Day Years Used Date Smoking Tobacco: Former Cigarettes Smokeless Tobacco: Never Tobacco Cessation:Counseling Given: Not Answered Alcohol Use Standard Drinks/Week Comments Yes 0 (1 standard drink = 0.6 oz pur e alcohol) VERY RARE Comments No Sex and Gender Information Value Date Recorded Sex Assigned at Not on file Legal Sex Female 9:05 PM EST Gender Identity Not on file Sexual Orientation Not on file Last Filed Vital Signs Vital Sign Reading Time Taken Comments Blood Pressure 168/84 12/17/2024 4:48 PM EDT Pulse 78 12/17/2024 4:44 PM EDT Temperature 36.8 C (98.2 F) 12/17/2024 4:44 PM EDT Respiratory Rate 12 12/17/2024 4:44 PM EDT Oxygen Saturation 97% 12/17/2024 4:44 PM EDT Inhaled Oxygen Concentration - - Weight 103.9 kg (229 lb) 12/17/2024 4:44 PM EDT Height 162.6 cm (5' 4 ) 12/17/2024 4:44 PM EDT Body Mass Index 39.31 12/17/2024 4:44 PM EDT Plan of Treatment Health Maintenance Due Date Last Done Comments Breast Cancer Screening - ex ternal PCP or OBGYN 1975 Colorectal Cancer Screening - external PCP / no colon specialist 1973 HIV Screening 1973 Well Visit 1976 BMI followup 1991 Depression Screening 1991 Hepatitis B Vaccination (1 o f 3 - 19+ 3-dose series) 1992 Tdap/Td Vaccination (1 - Tdap) 1994 Lab-Lipid Screening 2020 Pneumococcal Vaccination (1 of 1 - PCV) 2023 Zoster (Shingrix) Vaccination (1 of 2) 2023 Lab-Diabetes Screening (Gluc ose or HgA1c) 07/18/2024 07/18/2023, 03/28/2022 Influenza Vaccination (#1) 2025 COVID-19 Vaccine (1 - season) 2025 Cervical Cancer Screening (Hysterectomy) Discontinued [place] [id number] Care Teams Passenger Booking Clerk Relationship Specialty Start Date End Date Azra Du NP [address] [address] PCP - General Nurse Practitioner 07/10/24
--- OUTSIDE RECORDS SUMMARY | 2025-07-27 07:38 | XMS_ITS | Encounter Summary ---
Author Organization [employer] work Address [address] [place] [id number] Care Team Providers Care Hand Printed Circuit Board Assembler Name Role Phone Unavailable Primary Care Provider Unavailabl e Encounter Details Date Type Department Care Team (Latest Contact Info) Description 05/01/2018 IHIE Encounter IHMICHEL Autoabhilash Doctor No Address on File Social History Tobacco Use Types Packs/Day Years [...] as of this encounter Progress Notes * Christina Doctor - 05/07/2018 9:20 AM EDT This final report originated from an external system. Edits and Signatures are only valid in the legal medical record. IHIE: Office/Clinic Note [id number] Report: Manager Inspection (Juan) Exam: Office/Clinic Note Exam Date: 05/07/2018 Pt Name: TRUPTI ESPINOZA : 1975 Sex: F Account: [id number] TRUPTI ESPINOZA :1975 Registration Date:05/07/2018 Chief Complaint Follow up Urgent Care History of Present Illness Here for an appointment at her request--follow-up recent after hours clinic visit.. [facility] [place] [facility] due to severe tiredness--felt like I was drunk.. They eve 5 vials of blood.. She was felt to have a viral syndrome and told all her labs were NORMAL [Las reviewed after her OV and confirmed all wnl except glucose slightly elevated--non-fasting] Her symptoms resolved within 24 hours... She is also requesting I complete wellness paperwork Lastly concerned about a lesion of her left shoulder.. PAST MEDICAL HISTORY/PROBLEM LIST: 1. Elevated BP 2. Hypercholesterolemia 3. GERD 4. Palpitations 5. Osteoarthritis--multiple sites 6. Urge incontinence 7. Fibromyalgia--diagnosed per erp project manager when she was age 19 8. Anxiety/Panic attacks 9. Tobacco dependence PREVENTIVE HEALTH: Tdap--none Pneumovax--none Prevnar--N/A Zostavax--N/A COLONOSCOPY--N/A PAP smear--N/A Mammogram--greater than a year ago... SURGICAL HISTORY: --See history SOCIAL HISTORY: Occupation: [employer] Marital: ; 2 children [] Tobacco: 1 ppd X age 16 ETOH: Rarely Illicit drugs: none FAMILY HISTORY: MOTHER: Breast CA--diagnosed at age about 56 FATHER: CAD (+premature), CHF [2 half sisters] Review of Systems GENERAL: No fever/chills/sweats; loss of appetite SKIN: No rash ENDOCRINE: No heat/cold intolerance Physical Exam Vitals & Measurements HR: 80(Peripheral) RR: 14 BP: 118/76 SpO2: 98% HT: 161.92 cm WT: 95.25 kg BMI: 36.33 GENERAL: Pleasant WF in NAD SKIN: Left posterior shoulder region--black material/eschar with surrounding slight subcutaneous lump Assessment/Plan 1. Sebaceous cyst L72.3 --Refer to Dr. Walker for excision Ordered: Referral Ambulatory 2. Encounter for follow-up in outpatient clinic Z09 As above reviewed labs after OV Discussed potential SEs of the flexeril that I had previously prescribed-- extreme tiredness --?dueto this medication She will monitor her symptoms and determine if due to medication and if so take half and if symptoms remain STOP.. NOTE--Paperwork completed as requested..[see scanned document] Orders: External Referral Problem List/Past Medical History Ongoing Anxiety Degenerative cervical disc Degenerative lumbar disc Elevated blood pressure reading Fibromyalgia GERD (gastroesophageal reflux disease) Hypercholesterolemia Neuropathy Osteoarthritis, multiple sites Tobacco dependence Urge urinary incontinence Historical Procedure/Surgical History LAVH (Laparoscopy assisted vaginal hysterectomy) (2014) Bilateral Tubal Ligation Cholecystectomy; Medications atorvastatin 20 mg oral tablet, 20 mg= 1 tab(s), Oral, Daily cyclobenzaprine 10 mg oral tablet, 10 mg= 1 tab(s), Oral, TID, PRN, 5 refills Dulcolax 5mg EC Tab, 5 mg, Oral, Daily, PRN hydrOXYzine hydrochloride 25 mg oral tablet, See Instructions, 5 refills oxybutynin 5 mg oral tablet, 5 mg= 1 tab(s), Oral, BID, 11 refills Protonix 40 mg oral delayed release tablet, 40 mg= 1 tab(s), Oral, Daily, 11 refills Allergies Cymbalta (nausea, vomitting) Ultram (nausea, vomitting) documented in this encounter Procedure Notes * Doctor Christina - 05/15/2018 3:51 PM EDTAssociated Order(s): HIE LABORATORY RESULT This final report originated from an external system. Edits and Signatures are only valid in the legal medical record. IHIE: CT/NG Xpert ORDERED BY: VENKATESH TIMMONS (NON-[facility]) Lab Result Units Range Chlamydia trachomatis PCR NOT DETECTED Not Detected N. Gonorrhoeae NOT DETECTED Not Detected NOTE: Culture is recommended in cases of suspected medico-legal applications and/or NOTE: patients under 14 years of age. * Doctor Christina - 05/01/2018 1:57 PM EDTAssociated Order(s): HIE PATHOLOGY This final report originated from an external system. Edits and Signatures are only valid in the legal medical record. IHIE: Surgical Pathology Report ORDERED BY: ANTONIETTA GAMBOA (NON-[facility]) [id number] Report: Pathology (Juan) Exam: Surgical Pathology Report Exam Date: 05/01/2018 Pt Name: TRUPTI ESPINOZA : 1975 Sex: F Account: [id number] A. SKIN, LEFT GROIN: BENIGN FIBROEPITHELIAL POLYP (SKIN TAG) B. RIGHT VULVAR SKIN LESION: BENIGN FIBROEPITHELIAL POLYP C. SKIN, LEFT BUTTOCK: COMPLETELY EXCISED BENIGN INTRADERMAL PIGMENTED NEVUSSkin tags left groin, right vulva, left buttocks Preoperative diagnosis: Skin tag left groin, right vulva, left buttocks Left groin Right vulvar skin tag Left buttocks skin tag In a container labeled, Trupti Espinoza, left groin, is a wrinkled, light- brown 0.8 cm skin fragment, which will be submitted for study as (A). In a container labeled, Jenise Espinoza right vulvar skin tag, is a pedunculated, grayish-brown, hair-covered, slightly warty 1 cm skin fragment, which will be submitted for study as (B). In a container labeled, Jenise Espinoza left buttocks skin tag, is a warty, brown 0.5 cm soft, skin fragment, which will be submitted for study as (C). The lesion submitted as (A) is a benign skin tag in which the polypoid mass is covered by stratified squamous epithelium with the underlying stroma being fibrofatty without adnexal structures. Malignancy is not seen. Submitted as (B) is also a benign skin tag or fibroepithelial polyp. The epithelium is hyperkeratotic and acanthotic with the underlying stroma being fibrofatty. The lesion is completely excised. Submitted as (C) is a completely excised benign intradermal minimally pigmented polyp. The cells are uniform and computer programming manager. The surface epithelium is benign. (luciano) * Doctor Christina - 05/01/2018 12:50 PM EDTAssociated Order(s): [facility] RADIOLOGY REPORT This final report originated from an external system. Edits and Signatures are only valid in the legal medical record. IHIE: MA Mammogram Screening Bilat w/ Chai. ORDERED BY: MARIANNE ANTHONY ([facility]) [id number] Report: Radiology ([place]) Pt: TRUPTI ESPINOZA Clifford : 1975 MR#: [id number] Acct: [id number] Procedure: MA Mammogram Screening Bilat w Procedure Date: 05/01/2018 12:50:39 Location: [facility] Attending Physician: Ordering Physician: Marianne Anthony EXAM: MAMMO SCREENING BILATERAL WITH CAD AND CHAI WITH CAD INDICATION: SCREENING COMPARISON: 09/23/2013 TECHNIQUE: Standard Full-Field digital bilateral breast mammogram was performed with COMPUTER-AIDED DETECTION.In addition, 15 low-dose images were obtained in each projection. These low-dose images were reconstructed into 1 mm thick slices and reviewed on the soft copy workstation. ACR BREAST DENSITY: Scattered fibroglandular. FINDINGS: No suspicious abnormality identified. Mammographic images were processed with CAD. IMPRESSION: No mammographic evidence of malignancy. RECOMMENDATION: Monthly breast self examination. Annual physical examination. Screening mammogram in one year. (Code:SM-B-01Y) The patient will be notified of these results in writing. The patient will also receive a reminder prior to their next mammogram. BI-RADS CATEGORY: 1 - Negative (BIRADS Category 1) Electronically Signed By: Dereck Mujica M.D. On: 05/05/2018 10:31:30 AM documented in this encounter Plan of Treatment Not on file documented as of this encounter Procedures Procedure Name Priority Date/Time Associated Diagnosis Comments HIE LABORATORY RESULT 05/15/2018 3:51 PM EDT HIE PATHOLOGY 05/01/2018 1:57 PM EDT VTE RADIOLOGY REPORT 05/01/2018 12:50 PM EDT documented in this encounter Results * VTE LABORATORY RESULT (05/15/2018 3:51 PM EDT) Narrative Procedure Note Christina Doctor - 05/15/2018 3:51 PM EDT This final report originated from an external system. Edits and Signatures are only valid in the legal medical record. IHIE: CT/NG Xpert ORDERED BY: VENKATESH TIMMONS ([facility]) Lab Result Units Range Chlamydia trachomatis PCR NOT DETECTED Not Detected N. Gonorrhoeae NOT DETECTED Not Detected NOTE: Culture is recommended in cases of suspected medico-legalapplications and/or NOTE: patients under 14 years of age. Doctor Autosign [id number] Final Result * VTE PATHOLOGY (05/01/2018 1:57 PM EDT) Narrative Procedure Note Christina Doctor - 05/01/2018 1:57 PM EDT This final report originated from an external system. Edits and Signatures are only valid in the legal medical record. IHIE: Surgical Pathology Report ORDERED BY: ANTONIETTA GAMBOA ([facility]) [id number] Report: Pathology (Juan) Exam: Surgical Pathology Report Exam Date: 05/01/2018 Pt Name: TRUPTI ESPINOZA :1975 Sex: F Account: [id number] A. SKIN, LEFT GROIN: BENIGN FIBROEPITHELIAL POLYP (SKIN TAG) B. RIGHT VULVAR SKIN LESION: BENIGN FIBROEPITHELIAL POLYP C. SKIN, LEFT BUTTOCK: COMPLETELY EXCISED BENIGN INTRADERMAL PIGMENTED NEVUSSkin tags leftgroin, right vulva, left buttocks Preoperative diagnosis: Skin tag left groin, right vulva, left buttocks Left groin Right vulvar skin tag Left buttocks skin tag In a container labeled, Trupti Espinoza, left groin, is a wrinkled,light-brown 0.8 cm skin fragment, which will be submitted for study as(A). In a container labeled, Jenise Espinoza, right vulvar skin tag, is apedunculated, grayish-brown, hair-covered, slightly warty 1 cm skinfragment, which will be submitted for study as (B). In a container labeled, Jenise Espinoza, left buttocks skin tag, is awarty, brown 0.5 cm soft, skin fragment, which will be submitted for studyas (C). The lesion submitted as (A) is a benign skin tag in which the polypoidmass is covered by stratified squamous epithelium with the underlyingstroma being fibrofatty without adnexal structures. Malignancy is notseen. Submitted as (B) is also a benign skin tag or fibroepithelial polyp. Theepithelium is hyperkeratotic and acanthotic with the underlying stromabeing fibrofatty. The lesion is completely excised. Submitted as (C) is a completely excised benign intradermal minimallypigmented polyp. The cells are uniform and computer programming manager. The surface epitheliumis benign. (luciano) Doctor Autosign [id number] Edited Result - Final * HIE RADIOLOGY REPORT (05/01/2018 12:50 PM EDT) Anatomical Region Laterality Modality Other Narrative Procedure Note Autosiliza, Doctor - 05/01/2018 12:50 PM EDT This final report originated from an external system. Edits and Signatures are only valid in the legal medical record. IHIE: MA Mammogram Screening Bilat w/ Chai. ORDERED BY: MARIANNE ANTHONY ([facility]) [id number] Report: Radiology ([place]) Pt: CRISTIANO ESPINOZACLYDE Horton : 1975 MR#: [id number] Acct: [id number] Procedure: MA Mammogram Screening Bilat w Procedure Date: 05/01/201812:50:39 Location: [facility] Attending Physician: Ordering Physician: Marianne Anthony EXAM: MAMMO SCREENING BILATERAL WITH CAD AND CHAI WITH CAD INDICATION: SCREENING COMPARISON: 09/23/2013 TECHNIQUE: Standard Full-Field digital bilateral breast mammogram was performed withCOMPUTER-AIDED DETECTION. In addition, 15 low-dose images were obtainedin each projection. These low-dose images were reconstructed into 1 mmthick slices and reviewed on the soft copy workstation. ACR BREAST DENSITY: Scattered fibroglandular. FINDINGS: No suspicious abnormality identified. Mammographic images were processedwith CAD. IMPRESSION: No mammographic evidence of malignancy. RECOMMENDATION: Monthly breast self examination. Annual physical examination. Screening mammogram in one year. (Code:SM-B-01Y) The patient will be notified of these results in writing. The patientwill also receive a reminder prior to their next mammogram. BI-RADS CATEGORY: 1 - Negative (BIRADS Category 1) Electronically Signed By: Dereck Mujica M.D. On: 05/05/2018 10:31:30 AM Doctor Autosign [id number] Final Result documented in this encounter Visit Diagnoses Not on filedocumented in this encounter
--- OUTSIDE RECORDS SUMMARY | 2025-07-27 07:38 | XMS_ITS | Encounter Summary ---
Author Organization [facility] Address [address] [place] [address] Care Team Providers Care Biofuels Technology Manager Name Role Phone Odalis Adan SUPERVISOR [employer] Primary Care Provider Unava ilable Michael Zepeda MD Primary Care Provider Ansley vailable Encounter Details Date Type Department Care Team (Late st Contact Info) Description 07/10/2016 Historical Document Load [facility] Department [address] [place] [address] Prov, Ph Onbase Interface Social History Tobacco Use Types Packs/Day Years Used Date Smoking Tobacco: Heavy Smoker Cigarettes 0.5 24 Smokeless Tobacco: Never Alcohol Use Standard [...] on filedocumented in this encounter Care Teams Biofuels Technology Manager Relationship Specialty Start Date End Date Odalis Adan NP PCP - General Nurse Practitioner 03/20/16 10/10/16 Michael Zepeda MD PCP - General Family Medicine 10/11/16 documented as of this encounter
--- OUTSIDE RECORDS SUMMARY | 2025-07-27 07:38 | XMS_ITS | Encounter Summary ---
Author Organization [employer] [facility] Address [address] [place], [place] [id number] Care Team Providers Care Production Coordinator Name Role Phone Unavailable Primary Care Provider Unavailabl e Encounter Details Date Type Department Care Team (Latest Contact Info) Description 03/28/2018 IHIE Encounter IHIE [employer] Doctor No Address on File Social History [...] encounter Progress Notes * Christina Doctor - 03/26/2018 10:13 AM EDT This final report originated from an external system. Edits and Signatures are only valid in the legal medical record. IHIE: Office/Clinic Note [id number] Report: Review Appraiser (Juan) Exam: Office/Clinic Note Exam Date: 03/26/2018 Pt Name: LIZETH ESPINOZA : 1975 Sex: F Account: [id number] LIZETH ESPINOZA :1975 Registration Date:03/26/2018 Chief Complaint Establish Care History of Present Illness Previous PCP Dr. Zepeda--Sulema Jorge [place] to establish care for follow-up [facility] [place]--see assessment below Taking medications as directed without side effects or concerns--EXCEPT she reports she was prescribed lisinopril for her BP--she is NOT taking. In addition she was prescribed Lipitor but didn't takeit regularly and has not taken for a couple of months.. Notes she recently is -- moved back to [place] PAST MEDICAL HISTORY/PROBLEM LIST: 1. Elevated BP 2. Hypercholesterolemia 3. GERD 4. Palpitations 5. Osteoarthritis--multiple sites 6. Urge incontinence 7. Fibromyalgia--diagnosed per pre coder when she was age 19 8. Anxiety/Panic attacks 9. Tobacco dependence PREVENTIVE HEALTH: Tdap--none Pneumovax--none Prevnar--N/A Zostavax--N/A COLONOSCOPY--N/A PAP smear--N/A Mammogram--greater than a year ago... SURGICAL HISTORY: --See history SOCIAL HISTORY: Occupation: [employer] Marital: ; 2 children [] Tobacco: 1 ppd X age 16 ETOH: Rarely Illicit drugs: none FAMILY HISTORY: MOTHER: Breast CA--diagnosed at age about 56 FATHER: CAD (+premature), CHF [2 half sisters] Review of Systems GENERAL: +Fatigue; no sleep difficulty; no weight loss--has gained weight--reports she lost weight--down to 170#--gained back and then some... EYES: No visual disturbance RESPIRATORY: No dyspnea; cough; wheezing CARDIOVASCULAR: Occasional chest pain-- like pleurisy GASTROINTESTINAL: No abdominal pain; constipation; diarrhea; hematochezia; melena; indigestion/heartburn; dysphagia; odynophagia GENITOURINARY: No frequency; urgency; dysuria; hematuria; incontinence NEUROLOGICAL: No numbness; weakness; tingling; headache PSYCHOLOGICAL: No depression; +/-nervousness/anxiety SKIN: No change in hair/skin ENDOCRINE: No heat/cold intolerance; polydipsia; polyuria Physical Exam Vitals & Measurements HR: 80(Peripheral) RR: 14 BP: 110/76 SpO2: 97% HT: 161.92 cm WT: 97.07 kg BMI: 37.02 GENERAL: Pleasant WF in NAD ENT: *External canals without erythema, exudate or occluding cerumen; tympanic membranes pearly white without dullness/bulging or erythema *Lips without lesion; oral mucosa pink and moist; normal dentition *Oropharynx without erythema or exudate EYES: *Sclera non-icteric; conjunctiva without erythema *Pupils equal, round and reactive to light; extra ocular muscles intact NECK: *Supple; trachea mid-line *No thyromegaly; no tenderness LYMPHATIC: *No cervical adenopathy *No supraclavicular adenopathy *No axillary adenopathy RESPIRATORY: *Respiratory effort unlabored; symmetric chest wall excursion *Lungs clear to auscultation, bilaterally [no crackles, wheezes or rubs] CARDIOVASCULAR: *Carotid pulses 2+, bilaterally without bruits *Heart with normal S1, S2--regular rate and rhythm; no murmurs, gallops or rubs *No lower extremity edema, bilaterally *Dorsalis pedis pulses: R-2+ L-2+ *Posterior tibial pulses: R-2+ L-2+ GASTROINTESTINAL [ABDOMINAL]: *MILDLY OBESE; bowel sounds present, non-tender to palpation *No hepatosplenomegaly [percussion, palpation] NEUROLOGICAL: *Cranial nerves II-XII intact Assessment/Plan 1. Annual physical exam Z00.00 --Check screening labs --Order mammogram --No longer needs PAPs --Needs TdaP and Pneumovax --Encouraged smoking cessation Ordered: Glucose Level Glycohemoglobin Lipid Panel Standard TSH 2. Counseling on health promotion and disease prevention Z71.89 3. Screening for diabetes mellitus (DM) Z13.1 Ordered: Glucose Level Glycohemoglobin 4. Visit for screening mammogram Z12.31 Ordered: MA Mammogram Digital Screening. 5. Hypercholesterolemia E78.00 --Check lab--will determine if Rx needed based on results and CV risk assessment... Ordered: Lipid Panel Standard 6. GERD (gastroesophageal reflux disease) K21.9 Symptoms controlled --Continue current medication [CCM] 7. Urge urinary incontinence N39.41 Symptoms controlled --CCM 8. Anxiety F41.9 --CCM [Hydroxyzine] 9. Fibromyalgia M79.7 --CCM 10. Osteoarthritis, multiple sites M15.9 --CCM 11. Fatigue R53.83 Ordered: TSH Orders: cyclobenzaprine, 10 mg = 1 tab(s), Oral, TID, PRN PRN for spasm, # 30 tab(s), 5 Refill(s), Pharmacy: [id number], 1 tab(s) Oral TID,PRN:for spasm hydrOXYzine, See Instructions, 1 tab(s) Oral every 6 hours as needed, # 30 tab(s), 5 Refill(s), Pharmacy: [id number], 1 tab(s) Oral every 6 hours as needed oxybutynin, 5 mg = 1 tab(s), Oral, BID, # 60 tab(s), 11 Refill(s), Pharmacy: [id number], 1 tab(s) Oral BID pantoprazole, 40 mg = 1 tab(s), Oral, Daily, # 30 tab(s), 11 Refill(s), Pharmacy: [id number], 1 tab(s) Oral Daily FOLLOW-UP: 12M Annual physical exam and f/u [facility] [40]--fast Future Orders Glucose Level, Blood, Routine collect, 03/26/18, Annual physical exam Screening for diabetes mellitus (DM), Order for future visit Glycohemoglobin, Blood, Routine collect, 03/26/18, Annual physical exam Screening for diabetes mellitus (DM), Order for future visit Lipid Panel Standard, Blood, Routine collect, 03/26/18, Annual physical exam Hypercholesterolemia, Order for future visit TSH, Blood, Routine collect, 03/26/18, Annual physical exam Fatigue, Order for future visit MA Mammogram Digital Screening., 03/26/18, Routine, Reason: Screening, Transport Mode: Ambulatory, Visit for screening mammogram, Rad Type Problem List/Past Medical History Ongoing Anxiety Elevated blood pressure reading Fibromyalgia GERD (gastroesophageal reflux disease) Hypercholesterolemia Osteoarthritis, multiple sites Tobacco dependence Urge urinary incontinence Historical No qualifying data Procedure/Surgical History Bilateral Tubal Ligation Cholecystectomy; Hysterectomy [Has ovaries] Medications atorvastatin 20 mg oral tablet, 20 [...] Allergies Cymbalta (nausea, vomitting) Ultram (nausea, vomitting) Mammogram 04/2018 documented in this encounter Procedure Notes * Doctor Christina - 03/28/2018 10:27 AM EDTAssociated Order(s): HIE LABORATORY RESULT This final report originated from an external system. Edits and Signatures are only valid in the legal medical record. IHIE: Glycohemoglobin ORDERED BY: ALEENA MCCRAY ([employer] Lab Result Units Range Hgb A1c 5.0 % <=6.5 Est. Mean Glucose Lvl 97 mg/dL 69-123 * Doctor Christina - 03/28/2018 10:27 AM EDTAssociated Order(s): HIE LABORATORY RESULT This final report originated from an external system. Edits and Signatures are only valid in the legal medical record. IHIE: TSH ORDERED BY: ALEENA MCCRAY ([employer] Lab Result Units Range TSH 1.40 uIU/mL 0.30-4.20 Doctor Lissy - 03/28/2018 10:27 AM EDTAssociated Order(s): HIE LABORATORY RESULT This final report originated from an external system. Edits and Signatures are only valid in the legal medical record. IHIE: Lipid Panel Standard ORDERED BY: ALEENA MCCRAY ([employer] Lab Result Units Range Cholesterol Total 226 mg/dL 120-200 HI HDL Cholesterol 40 mg/dL 40-85 LDL Calculated 146 mg/dL 0-130 HI NOTE: RLDL LDL CALCULATION MAY BE INACCURATE WHEN TRIGLYCERIDES NOTE: ARE >400 MG/DL. IF INACCURATE CALCULATED LDL RESULTS ARE NOTE: SUSPECTED, PLEASE REQUEST DIRECT LDL MEASUREMENT. Trig 198 mg/dL 0-150 HI Chol/HDL Ratio 6 NOTE: RRISK RISK RATIO INTERPRETATION: NOTE: MALE FEMALE LOWEST <3.9 NOTE: <3.0 LOW 3.9-4.7 3.0-3.6 NOTE: MODERATE 4.8-5.9 3.7-4.6 HIGH NOTE: 6.0-6.9 4.7-5.6 HIGHEST >6.9 NOTE: >5.6 Breakpoint Doctor Dayanara - 03/28/2018 10:27 AM EDTAssociated Order(s): HIE LABORATORY RESULT This final report originated from an external system. Edits and Signatures are only valid in the legal medical record. IHIE: Glucose Level ORDERED BY: ALEENA MCCRAY ([employer] Lab Result Units Range Glucose Lvl 97 mg/dL 70-100 documented in this encounter Plan of Treatment Not on file documented as of this encounter Procedures Procedure Name Priority Date/Time Associated Diagnosis Comments HIE LABORATORY RESULT 03/28/2018 10:27 AM EDT HIE LABORATORY RESULT 03/28/2018 10:27 AM EDT HIE LABORATORY RESULT 03/28/2018 10:27 AM EDT HIE LABORATORY RESULT 03/28/2018 10:27 AM EDT documented in this encounter Results * HIE LABORATORY RESULT (03/28/2018 10:27 AM EDT) Narrative Procedure Note Doctor Christina - 03/28/2018 10:27 AM EDT This final report originated from an external system. Edits and Signatures are only valid in the legal medical record. IHIE: Glucose Level ORDERED BY: ALEENA MCCRAY ([employer] Lab Result Units Range Glucose Lvl 97 mg/dL 70-100 Doctor Vasquez [id number] Final Result * HIE LABORATORY RESULT (03/28/2018 10:27 AM EDT) Narrative Procedure Note Doctor Christina - 03/28/2018 10:27 AM EDT This final report originated from an external system. Edits and Signatures are only valid in the legal medical record. IHIE: Lipid Panel Standard ORDERED BY: ALEENA MCCRAY ([employer] Lab Result Units Range Cholesterol Total 226 mg/dL 120-200HI HDL Cholesterol 40 mg/dL 40-85 LDL Calculated 146 mg/dL 0-130HI NOTE: RLDL LDL CALCULATION MAY BE INACCURATE WHENTRIGLYCERIDES NOTE: ARE >400 MG/DL. IF INACCURATE CALCULATED LDL RESULTSARE NOTE: SUSPECTED, PLEASE REQUEST DIRECT LDL MEASUREMENT. Trig 198 mg/dL 0-150HI Chol/HDL Ratio 6 NOTE: RRISK RISK RATIO INTERPRETATION: NOTE: MALE FEMALE LOWEST<3.9 NOTE: <3.0 LOW 3.9-4.73.0-3.6 NOTE: MODERATE 4.8-5.9 3.7-4.6HIGH NOTE: 6.0-6.9 4.7-5.6 HIGHEST>6.9 NOTE: >5.6 Breakpoint Doctor [employer] [id number] Final Result * HIE LABORATORY RESULT (03/28/2018 10:27 AM EDT) Narrative Procedure Note [employer], Doctor - 03/28/2018 10:27 AM EDT This final report originated from an external system. Edits and Signatures are only valid in the legal medical record. IHIE: TSH ORDERED BY: ALEENA MCCRAY ([employer] Lab Result Units Range TSH 1.40 uIU/mL 0.30-4.20 Doctor [employer] [id number] Final Result * HIE LABORATORY RESULT (03/28/2018 10:27 AM EDT) Narrative Procedure Note [employer], Doctor - 03/28/2018 10:27 AM EDT This final report originated from an external system. Edits and Signatures are only valid in the legal medical record. IHIE: Glycohemoglobin ORDERED BY: ALEENA MCCRAY ([employer] Lab Result Units Range Hgb A1c 5.0 % <=6.5 Est. Mean Glucose Lvl 97 mg/dL 69-123 us Doctor [employer] [id number] Final Result documented in this encounter Visit Diagnoses Not on filedocumented in this encounter
== END 2025-07-25 23:59 ==
LOC: LAB.DROPOF 07-27 07:35
PROVIDERS: Visit Provider Nurse Practitioner
DX: R30.0 Dysuria (principal); R35.0 Frequency of micturition
CPT/HCPCS: 87086; 87491; 87591; 87661